=== PATIENT | male | born 1965 | race Caucasian/White ===

== ENCOUNTER 2018-12-11 11:44 | Observation (INO) | payer BC ==
[2018-12-11] MEDS ORDERED: ASPIRIN 81 MG PO STA (12:10)
[2018-12-11] MEDS ORDERED: NITROGLYCERIN OINT 1 INCH/GM PACKET TOPICAL STA (12:10)
[2018-12-11 12:43] LABS: Basophils % (A) 0 %; Eosinophils # (A) 0.1 k/uL (0-0.7); Eosinophils % (A) 1 %; HCT 55.5 % (39.0-53.0); HGB 17.9 gm/dL (13.0-17.5); Lymphocytes # (A) 1.1 k/uL (1.0-4.8); Lymphocytes % (A) 18 %; MCH 33.7 pg (25.0-35.0); MCHC 32.2 g/dL (31.0-37.0); MCV 104.8 fL (80.0-100.0); Macrocytosis Moderate; Mean Platelet Volume 7.8; Monocytes # (A) 0.3 k/uL (0-1.0); Monocytes % (A) 5 %; Neutrophils # (A) 4.4 k/uL (1.3-7.7); Neutrophils % (A) 74 %; Platelet Count 259 k/uL (150-450); RBC 5.29 m/uL (4.30-5.90); RDW 15.7 % (11.5-15.5)
--- NOTE | 2018-12-11 12:50 | ED ---
General Adult HPI - General Chief complaint: Chest Pain Stated complaint: Chest pressure Time Seen by Provider: 12/11/18 11:45 Source: patient, RN notes reviewed Mode of arrival: wheelchair Limitations: no limitations - History of Present Illness Initial comments: This is a 52-year-old male with no significant past medical history except for smoking for which she has quit 7 years ago. Patient states starting on Sunday he had chest pain on the left side of his chest which radiated a little to his left shoulder and also made him slightly lightheaded and had some tingling in his left hand. Patient states the episode lasted about 5 minutes and it is very occurred every day multiple times each day. Patient states the pain is a pressure sensation that he feels. Patient states it usually lasts 5 minutes and occasionally is only lasted a few minutes. Patient currently denies any chest pain. Patient denies any history of diabetes hypertension or high cholesterol. Patient denies any family history of heart disease. Patient denies any recent fever chills or cough. Patient denies any headache patient denies numbness weakness. Patient denies lightheadedness dizziness or near-syncopal episode. Patient denies any swelling to the legs or calf tenderness. - Related Data Home Medications Medication Instructions Recorded Confirmed Aspirin EC [Ecotrin] 325 mg PO DAILY PRN 12/11/18 12/11/18 [place]-3 Fatty Acids/Fish Oil [Fish 1 cap PO DAILY 12/11/18 12/11/18 Oil 1,000 mg Softgel] Tamsulosin [Flomax] 0.4 mg PO DAILY 12/11/18 12/11/18 Allergies Allergy/AdvReac Type Severity Reaction Status Date / Time No Known Allergies Allergy Verified 12/11/18 12:10 Review of Systems ROS Statement: Those systems with pertinent positive or pertinent negative responses have been documented in the HPI. ROS Other: All systems not noted in ROS Statement are negative. Past Medical History Additional Past Medical History / Comment(s): bladder retention History of Any Multi-Drug Resistant Organisms: None Reported Past Surgical History: Hernia Repair Smoking Status: Former smoker Past Alcohol Use History: Occasional Past Drug Use History: Marijuana General Exam - General Exam Comments Initial Comments: GENERAL: Patient is well-developed and well-nourished. Patient is nontoxic and well- hydrated and is in mild distress. ENT: Neck is soft and supple. No significant lymphadenopathy is noted. Oropharynx is clear. Moist mucous membranes. Neck has full range of motion without eliciting any pain. EYES: The sclera were anicteric and conjunctiva were pink and moist. Extraocular movements were intact and pupils were equal round and reactive to light. Eyelids were unremarkable. PULMONARY: Unlabored respirations. Good breath sounds bilaterally. No audible rales rhonchi or wheezing was noted. CARDIOVASCULAR: There is a regular rate and rhythm without any murmurs gallops or rubs. ABDOMEN: Soft and nontender with normal bowel sounds. No palpable organomegaly was noted. There is no palpable pulsatile mass. SKIN: Skin is clear with no lesions or rashes and otherwise unremarkable. NEUROLOGIC: Patient is alert and oriented x3. Cranial nerves II through XII are grossly intact. Motor and sensory are also intact. Normal speech, volume and content. Symmetrical smile. MUSCULOSKELETAL: Normal extremities with adequate strength and full range of motion. LYMPHATICS: No significant lymphadenopathy is noted PSYCHIATRIC: Normal psychiatric evaluation. Limitations: no limitations Course Vital Signs 12/11/18 11:47 Temperature 98.1 F Pulse Rate 96 Respiratory 18 Rate Blood Pressure 158/89 O2 Sat by Pulse 98 Oximetry Medical Decision Making - Medical Decision Making EKG shows normal sinus rhythm at 82 bpm MS interval 170 QRS is 96 Q-T intervals 36 QTC is 450. Patient's EKG shows no ST segment elevation or depression or T wave abnormalities are noted. Chest x-ray showed no acute normalities. New. Patient had no chest pain while in the emergency department. Patient did receive aspirin and Nitropaste and heparin. I spoke with Dr. Cortes he agreed to accept the patient admitted the patient wrote admitting orders I continued heparin and aspirin and Nitropaste on the floor. I also consult to cardiology. - Lab Data Result diagrams: 12/11/18 11:59 12/11/18 11:59 Lab Results 12/11/18 12/11/18 12/11/18 Range/Units 11:59 11:59 11:59 WBC 6.0 (3.8-10.6) k/uL RBC 5.29 (4.30-5.90) m/uL Hgb 17.9 H (13.0-17.5) gm/dL Hct 55.5 H (39.0-53.0) % MCV 104.8 H (80.0-100.0) fL MCH 33.7 (25.0-35.0) pg MCHC 32.2 (31.0-37.0) g/dL RDW 15.7 H (11.5-15.5) % Plt Count 259 (150-450) k/uL Neutrophils % 74 % Lymphocytes % 18 % Monocytes % 5 % Eosinophils % 1 % Basophils % 0 % Neutrophils # 4.4 (1.3-7.7) k/uL Lymphocytes # 1.1 (1.0-4.8) k/uL Monocytes # 0.3 (0-1.0) k/uL Eosinophils # 0.1 (0-0.7) k/uL Basophils # 0.0 (0-0.2) k/uL Macrocytosis Moderate PT 11.5 (9.0-12.0) sec INR 1.1 (<1.2) APTT 24.2 (22.0-30.0) sec Sodium 141 (137-145) mmol/L Potassium 4.2 (3.5-5.1) mmol/L Chloride 104 (98-107) mmol/L Carbon Dioxide 24 (22-30) mmol/L Anion Gap 13 mmol/L BUN 8 L (9-20) mg/dL Creatinine 0.77 (0.66-1.25) mg/dL Est GFR (CKD-EPI)AfAm >90 (>60 ml/min/1.73 sqM) Est GFR (CKD-EPI)NonAf >90 (>60 ml/min/1.73 sqM) Glucose 103 H (74-99) mg/dL Calcium 10.1 (8.4-10.2) mg/dL Magnesium 1.9 (1.6-2.3) mg/dL Total Bilirubin 0.8 (0.2-1.3) mg/dL AST 24 (17-59) U/L ALT 23 (21-72) U/L Alkaline Phosphatase 73 (38-126) U/L Troponin I (0.000-0.034) ng/mL Total Protein 8.4 H (6.3-8.2) g/dL Albumin 5.2 H (3.5-5.0) g/dL 12/11/18 Range/Units 11:59 WBC (3.8-10.6) k/uL RBC (4.30-5.90) m/uL Hgb (13.0-17.5) gm/dL Hct (39.0-53.0) % MCV (80.0-100.0) fL MCH (25.0-35.0) pg MCHC (31.0-37.0) g/dL RDW (11.5-15.5) % Plt Count (150-450) k/uL Neutrophils % % Lymphocytes % % Monocytes % % Eosinophils % % Basophils % % Neutrophils # (1.3-7.7) k/uL Lymphocytes # (1.0-4.8) k/uL Monocytes # (0-1.0) k/uL Eosinophils # (0-0.7) k/uL Basophils # (0-0.2) k/uL Macrocytosis PT (9.0-12.0) sec INR (<1.2) APTT (22.0-30.0) sec Sodium (137-145) mmol/L Potassium (3.5-5.1) mmol/L Chloride (98-107) mmol/L Carbon Dioxide (22-30) mmol/L Anion Gap mmol/L BUN (9-20) mg/dL Creatinine (0.66-1.25) mg/dL Est GFR (CKD-EPI)AfAm (>60 ml/min/1.73 sqM) Est GFR (CKD-EPI)NonAf (>60 ml/min/1.73 sqM) Glucose (74-99) mg/dL Calcium (8.4-10.2) mg/dL Magnesium (1.6-2.3) mg/dL Total Bilirubin (0.2-1.3) mg/dL AST (17-59) U/L ALT (21-72) U/L Alkaline Phosphatase (38-126) U/L Troponin I <0.012 (0.000-0.034) ng/mL Total Protein (6.3-8.2) g/dL Albumin (3.5-5.0) g/dL Critical Care Time Critical Care Time: Yes Total Critical Care Time: 35 Disposition Clinical Impression: Unstable angina pectoris Disposition: ADMITTED IP TO THIS [facility] Referrals: Tad Forrest MD [Primary Care Provider] - 1-2 days Time of Disposition: 13:29
[2018-12-11 12:51] LABS: INR 1.1 (<1.2); Partial Thromboplastin Time 24.2 sec (22.0-30.0); Prothrombin Time 11.5 sec (9.0-12.0)
--- NOTE | 2018-12-11 12:54 | XR ---
EXAMINATION TYPE: XR chest 2V DATE OF EXAM: 12/11/2018 COMPARISON: NONE HISTORY: Chest pain and shortness of breath TECHNIQUE: Frontal and lateral views of the chest are obtained. FINDINGS: There is no focal air space opacity, pleural effusion, or pneumothorax seen. The cardiac silhouette size is within normal limits. The osseous structures are intact. There are overlying car diac leads. IMPRESSION: No acute cardiopulmonary process.
[2018-12-11 12:55] LABS: ALT 23 U/L (21-72); AST 24 U/L (17-59); African American GFR (CKD) >90 (>60 ml/min/1.73 sqM); Albumin 5.2 g/dL (3.5-5.0); Alkaline Phosphatase 73 U/L (38-126); Anion Gap 13 mmol/L; Blood Urea Nitrogen 8 mg/dL (9-20); Calcium 10.1 mg/dL (8.4-10.2); Carbon Dioxide 24 mmol/L (22-30); Chloride 104 mmol/L (98-107); Glucose 103 mg/dL (74-99); Magnesium 1.9 mg/dL (1.6-2.3); Potassium 4.2 mmol/L (3.5-5.1); Sodium 141 mmol/L (137-145); Total Bilirubin 0.8 mg/dL (0.2-1.3); Total Protein 8.4 g/dL (6.3-8.2)
[2018-12-11] MEDS ORDERED: HEPARIN SODIUM,PORCINE 5,000 UNIT/ML 1 ML VIAL IV ONE (13:26)
[2018-12-11] MEDS ORDERED: NITROGLYCERIN SL TABS 0.4 MG TAB SUBLINGUAL PRN (13:30)
[2018-12-11] MEDS ORDERED: HEPARIN SOD,PORK IN 0.45% NACL 25,000 UNIT in 0.45% NACL 1 250ML.BAG IV SCH (13:45)
--- NOTE | 2018-12-11 14:47 | P.HPIM ---
History of Present Illness H&P Date: 12/11/18 Chief Complaint: Chest pain This is a 52-year-old male one of Dr. Forrest with a previous medical history significant for hypertension and hypertensive cardiovascular disease, hyperlipidemia, tinnitus, colon polyps, patient presented to the emergency department at [facility] with 3 day history of recurrent left-sided chest pain associated with increased shortness breath patient stated that he was at a family reunion on Sunday was hot and suddenly developed to have a significant chest pressure associated with increased shortness breath with profuse sweating ended up going to a "spot and he felt better Sunday was doing fine on and off left-sided chest pain has no relation to exertion at that time Sunday felt better however he woke up on Sunday with more chest pain he spend lasted for less than a minute and has no relation to exertion he stated that he has been exercising on treadmill and lifting lightweights without evidence of any chest pain located in the morning from sleep with left-sided chest pain and shortness breath he ended up driving himself to the emergency department for evaluation 12-lead EKG did not show any evidence of acute abnormalities, cardiac enzymes were negative he was admitted to the hospital for evaluation he has not had any cardiac evaluation in the past he would be scheduled for stress echo in the morning. Review of Systems Constitutional: Denies anorexia, Denies chronic headaches, Denies fever, Denies lethargy, Denies weakness Eyes: denies as per HPI, denies blurred vision, denies bulging eye Ears: deny: decreased hearing Ears, nose, mouth and throat: Denies dysphagia, Denies neck lump, Denies sore throat Cardiovascular: Reports chest pain, Reports shortness of breath, Denies decreased exercise tolerance, Denies dyspnea on exertion, Denies leg edema, Denies lightheadedness, Denies orthopnea, Denies palpitations, Denies rapid heart beat, Denies syncope Respiratory: Denies congestion, Denies cough, Denies cough with sputum, Denies home oxygen, Denies sleep apnea, Denies snoring, Denies wheezing Gastrointestinal: Denies abdominal pain, Denies belching, Denies bloating, Denies change in bowel habits, Denies heartburn, Denies melena, Denies nausea, Denies vomiting Genitourinary: Denies dysuria, Denies nocturia Musculoskeletal: Denies myalgias Musculoskeletal: absent: ankle pain, ankle stiffness, ankle swelling, elbow pain, elbow stiffness, elbow swelling, foot pain, foot stiffness, foot swelling, hand pain, hand stiffness, hand swelling, hip pain, hip stiffness, hip swelling, knee pain, knee stiffness, knee swelling, shoulder pain, shoulder stiffness, shoulder swelling, wrist pain, wrist stiffness, wrist swelling Integumentary: Denies pruritus, Denies rash Neurological: Denies numbness, Denies weakness Psychiatric: Denies anxiety, Denies depression Endocrine: Denies fatigue, Denies weight change Past Medical History Past Medical History: Hyperlipidemia, Hypertension Additional Past Medical History / Comment(s): bladder retention, tinnitus, colon polyps. History of Any Multi-Drug Resistant Organisms: None Reported Past Surgical History: Hernia Repair Additional Past Surgical History / Comment(s): Colonoscopy last year with polypectomy. Smoking Status: Former smoker (Patient used to smoke about pack every day smoked for about 13 years quit 7 years ago.) Past Alcohol Use History: Occasional Past Drug Use History: Marijuana - Past Family History Mother Family Medical History: Cancer (Mother is 79-year-old with a history of bladder cancer and COPD.), COPD Father Family Medical History: Cancer (Father at age of 55 from lung cancer with metastases and he had asbestos exposure) Sister(s) Family Medical History: No Reported History (Patient has one sister no major medical problems.) Medications and Allergies Home Medications Medication Instructions Recorded Confirmed Type Aspirin EC [Ecotrin] 325 mg PO DAILY PRN 12/11/18 12/11/18 History [place]-3 Fatty Acids/Fish Oil [Fish 1 cap PO DAILY 12/11/18 12/11/18 History Oil 1,000 mg Softgel] Tamsulosin [Flomax] 0.4 mg PO DAILY 12/11/18 12/11/18 History Allergies Allergy/AdvReac Type Severity Reaction Status Date / Time No Known Allergies Allergy Verified 12/11/18 12:10 Physical Exam Vitals: Vital Signs Temp Pulse Resp BP Pulse Ox 12/11/18 11:47 98.1 F 96 18 158/89 98 Intake and Output 12/10/18 12/11/18 12/11/18 22:59 06:59 14:59 Other: Weight 84.822 kg - Constitutional General appearance: average body habitus, no acute distress - EENT Eyes: anicteric sclerae, EOMI, PERRLA, no ptosis, no scleral icterus, normal appearance ENT: hearing grossly normal, NA/AT, normal oropharynx, no thrush Ears: bilateral: normal - Neck Neck: no lymphadenopathy, normal ROM, no rigidity, no stridor, no thyromegaly Carotids: bilateral: upstroke normal Thyroid: bilateral: normal size - Respiratory Respiratory: bilateral: diminished, negative: dullness, rales, rhonchi, wheezing, prolonged expiration, prolonged inspiration - Cardiovascular Rhythm: regular Heart sounds: normal: S1, S2 Abnormal Heart Sounds: no systolic murmur, no S3 Gallop, no S4 Gallop - Gastrointestinal General gastrointestinal: normal bowel sounds, soft, no splenomegaly, no tend erness, no umbilical hernia, no ventral hernia - Integumentary Integumentary: normal, normal turgor - Neurologic Neurologic: CNII-XII intact - Musculoskeletal Musculoskeletal: gait normal, strength equal bilaterally - Psychiatric Psychiatric: A&O x's 3, appropriate affect, intact judgment & insight Results CBC & Chem 7: 12/11/18 11:59 12/11/18 11:59 Labs: Abnormal Lab Results - Last 24 Hours (Table) 12/11/18 12/11/18 Range/Units 11:59 11:59 Hgb 17.9 H (13.0-17.5) gm/dL Hct 55.5 H (39.0-53.0) % MCV 104.8 H (80.0-100.0) fL RDW 15.7 H (11.5-15.5) % BUN 8 L (9-20) mg/dL Glucose 103 H (74-99) mg/dL Total Protein 8.4 H (6.3-8.2) g/dL Albumin 5.2 H (3.5-5.0) g/dL Thrombosis Risk Factor Assmnt - DVT/VTE Prophylaxis DVT/VTE Prophylaxis: Pharmacologic Prophylaxis ordered, Mechanical Prophylaxis ordered Assessment and Plan Assessment: Assessment and plan: 1. Chest pain likely noncardiac. Patient has a few risk factor for heart disease, patient will be kept in observation, cardiac enzymes 3 every 8 hours, patient will be scheduled for stress echo tomorrow morning for further evaluation, if the stress test is negative can be discharged home and follow-up as an outpatient. 2. Hypertension. Patient is not taking any medication at this time we'll consider starting the patient on small dose of lisinopril 5 mg orally once every day. 3. Hyperlipidemia. Check lipid panel start the patient on Lipitor to keep his LDL less than 100 at all the time. 4. History of tinnitus. Stable. 5. History of colon polyps. Colonoscopy is up-to-date scheduled for another one in 3 years. 6. DVT prophylaxis. On heparin. 7. GI prophylaxis. Pepcid 20 mg orally once every day. 8. Observation. 9. Full code.
[2018-12-11] MEDS: NITROGLYCERIN OINT 1 INCH/GM PACKET TOPICAL SCH (19:00)
[2018-12-12] MEDS: NITROGLYCERIN OINT 1 INCH/GM PACKET TOPICAL SCH ×2 (00:22→04:51)
[2018-12-12 07:50] LABS: Cholesterol 164 mg/dL (<200); HDL Cholesterol 42 mg/dL (40-60); LDL Cholesterol,Calculated 84 mg/dL (0-99); Triglycerides 189 mg/dL (<150)
[2018-12-12] MEDS ORDERED: ASPIRIN 325 MG TAB PO SCH (09:00)
[2018-12-12] MEDS ORDERED: FAMOTIDINE 20 MG TAB PO SCH (09:00)
[2018-12-12] MEDS ORDERED: LISINOPRIL 5 MG TAB PO SCH (09:00)
--- NOTE | 2018-12-12 12:04 | P.CRDCN ---
History of Present Illness History of present illness: This is a pleasant 52-year-old male past medical history significant for intermittent hypertension and is probably not on medical therapy. He denies history of coronary artery disease and does not follow with a application design engineer for any reason. We have been asked him in consultation secondary to chest discomfort. He states while at a family reunion on Sunday he was sitting outside in the heat and started feeling a tight pinching sensation in the left precordial region. He went into the house in the AC and the pain subsided. This happened again Sunday, Sunday, Sunday and Sunday. All 4 days he woke up in the morning feeling normal state of health with no chest discomfort has progressed he developed similar type burning pinching type of left precordial chest discomfort. There was no radiation to the arm, back, neck or jaw. This was associated with very mild shortness of breath and feeling somewhat lightheaded. He denies palpitations, nausea, vomiting or diaphoresis. He is seen and examined resting comfortably in no acute distress. He is currently chest pain-free. EKG reveals sinus mechanism with no acute ST or T wave abnormalities noted. Chest x-ray is negative for an acute cardiopulmonary process. Laboratory data reviewed, cardiac enzymes negative 3, WBC 6, hemoglobin 17.9, platelets 259, sodium 141, potassium 4.2, creatinine 0.77. He takes no daily cardiac medications. At the time of my exam: CONSTITUTIONAL: Denies fever. Denies chills. EYES: Denies blurred vision. Denies vision changes. Denies eye pain. EARS, NOSE, MOUTH & THROAT: Denies headache. Denies sore throat. Denies ear pain. CARDIOVASCULAR: Denies chest pain. Denies shortness of breath. Denies orthopnea. Denies PND. Denies palpitations. RESPIRATORY: Denies cough. GASTROINTESTINAL: Denies abdominal pain. Denies diarrhea. Denies constipation. Denies nausea. Denies vomiting. MUSCULOSKELETAL: Denies myalgias. INTEGUMENTARY: Denies pruitis. Denies rash. NEUROLOGIC: Denies numbness. Denies tingling. Denies weakness. PSYCHIATRIC: Denies anxiety. Denies depression. ENDOCRINE: Denies fatigue. Denies weight change. Denies polydipsia. Denies polyurina. GENITOURINARY: Denies burning, hematuria or urgency with micturation. HEMATOLOGIC: Denies history of anemia. Denies bleeding. Blood pressure GENERAL: This is a 52-year-old male in no apparent distress at the time of my examination. HEENT: Head is atraumatic, normocephalic. Pupils are equal, round. Sclerae anict lizbet. Conjunctivae are clear. Mucous membranes of the mouth are moist. Neck is supple. There is no jugular venous distention. No carotid bruit is heard. LUNGS: Clear to auscultation no wheezes, rales or rhonchi. No chest wall tenderness is noted on palpation or with deep breathing. HEART: Regular rate and rhythm without murmurs, rubs or gallops. S1 and S2 heard. ABDOMEN: Soft, nontender. Bowel sounds are heard. No organomegaly noted. EXTREMITIES: No evidence of peripheral edema and no calf tenderness noted. VASCULAR: Radial and dorsalis pedis pulses palpated, no evidence of clubbing. NEUROLOGIC: Patient is awake, alert and oriented x3. ASSESSMENT Chest pain, atypical. An acute coronary event has been ruled out PLAN Symptoms are atypical and not indicative of angina. Noncardiac etiology to be evaluated by the primary care team. An acute coronary event has been ruled out. Discontinue heparin infusion. Obtain 2-D echocardiogram and Doppler study to assess cardiac structure and fu nction. Perform stress echocardiogram to assess for stress-induced ischemia. If stress test is normal the patient is stable from a cardiac perspective. Thank you kindly for this consultation. Nurse Practitioner note has been reviewed, I agree with a documented findings and plan of care. Patient was seen and examined. Past Medical History Past Medical History: Hyperlipidemia, Hypertension Additional Past Medical History / Comment(s): bladder retention, tinnitus, colon polyps. History of Any Multi-Drug Resistant Organisms: None Reported Past Surgical History: Hernia Repair Additional Past Surgical History / Comment(s): Colonoscopy last year with polyp ectomy. Past Anesthesia/Blood Transfusion Reactions: No Reported Reaction Past Psychological History: No Psychological Hx Reported Smoking Status: Former smoker Past Alcohol Use History: Occasional Past Drug Use History: Marijuana - Past Family History Mother Family Medical History: Cancer, COPD Father Family Medical History: Cancer Sister(s) Family Medical History: No Reported History Medications and Allergies Home Medications Medication Instructions Recorded Confirmed Type Aspirin EC [Ecotrin] 325 mg PO DAILY PRN 12/11/18 12/11/18 History [place]-3 Fatty Acids/Fish Oil [Fish 1 cap PO DAILY 12/11/18 12/11/18 History Oil 1,000 mg Softgel] Tamsulosin [Flomax] 0.4 mg PO DAILY 12/11/18 12/11/18 History Allergies Allergy/AdvReac Type Severity Reaction Status Date / Time No Known Allergies Allergy Verified 12/11/18 12:10 Physical Exam Vitals: Vital Signs Temp Pulse Pulse Resp BP BP Pulse Ox 12/12/18 07:43 97.9 F 55 L 18 115/76 97 12/12/18 03:57 98.3 F 64 16 102/64 97 12/12/18 00:00 98.5 F 60 18 121/59 93 L 12/11/18 19:33 98.1 F 80 18 123/72 95 12/11/18 16:00 84 19 12/11/18 15:10 97.8 F 84 19 129/89 95 12/11/18 11:47 98.1 F 96 18 158/89 98 Intake and Output 12/11/18 12/12/18 12/12/18 22:59 06:59 14:59 Intake Total 83.508 Balance 83.508 Intake: Intake, IV Titration 83.508 Amount Heparin Sod,Pork in 0.45% 83.508 NaCl 25,000 unit In 0.45 % NaCl 1 250ml.bag @ 11. 79 UNITS/KG/HR 10.001 mls /hr IV .Q24H FOR[facility]LY [facility], 1928–1983 Rx#: [id number] Other: Voiding Method Toilet Toilet # Voids 2 1 Results 12/11/18 11:59 12/11/18 11:59 Cardiac Enzymes 12/11/18 12/11/18 12/11/18 Range/Units 11:59 11:59 19:59 AST 24 (17-59) U/L Troponin I <0.012 <0.012 (0.000-0.034) ng/mL 12/11/18 Range/Units 23:57 AST (17-59) U/L Troponin I <0.012 (0.000-0.034) ng/mL Coagulation 12/11/18 12/11/18 12/12/18 Range/Units 11:59 19:59 06:53 PT 11.5 (9.0-12.0) sec APTT 24.2 35.7 H 46.2 H (22.0-30.0) sec Lipids 12/12/18 Range/Units 06:53 Triglycerides 189 H (<150) mg/dL Cholesterol 164 (<200) mg/dL HDL Cholesterol 42 (40-60) mg/dL CBC 12/11/18 Range/Units 11:59 WBC 6.0 (3.8-10.6) k/uL RBC 5.29 (4.30-5.90) m/uL Hgb 17.9 H (13.0-17.5) gm/dL Hct 55.5 H (39.0-53.0) % Plt Count 259 (150-450) k/uL Comprehensive Metabolic Panel 12/11/18 Range/Units 11:59 Sodium 141 (137-145) mmol/L Potassium 4.2 (3.5-5.1) mmol/L Chloride 104 (98-107) mmol/L Carbon Dioxide 24 (22-30) mmol/L BUN 8 L (9-20) mg/dL Creatinine 0.77 (0.66-1.25) mg/dL Glucose 103 H (74-99) mg/dL Calcium 10.1 (8.4-10.2) mg/dL AST 24 (17-59) U/L ALT 23 (21-72) U/L Alkaline Phosphatase 73 (38-126) U/L Total Protein 8.4 H (6.3-8.2) g/dL Albumin 5.2 H (3.5-5.0) g/dL Current Medications Generic Name Dose Route Start Last Admin Trade Name Freq PRN Reason Stop Dose Admin Aspirin 325 mg 12/12/18 09:00 Aspirin PO DAILY [facility]1983 Famotidine 20 mg 12/12/18 09:00 Pepcid PO DAILY [facility]IS Lisinopril 5 mg 12/12/18 09:00 Zestril PO DAILY [facility]1983 Nitroglycerin 0.4 mg 12/11/18 13:30 Nitrostat SUBLINGUAL Q5M PRN Chest Pain Intake and Output 12/11/18 12/12/18 12/12/18 22:59 06:59 14:59 Intake Total 83.508 Balance 83.508 Intake: Intake, IV Titration 83.508 Amount Heparin Sod,Pork in 0.45% 83.508 NaCl 25,000 unit In 0.45 % NaCl 1 250ml.bag @ 11. 79 UNITS/KG/HR 10.001 mls /hr IV .Q24H [facility], [facility]–1983 Rx#: [id number] Other: Voiding Method Toilet Toilet # Voids 2 1 12/11/18 11:59 12/11/18 11:59
--- NOTE | 2018-12-12 12:06 | ECHOF ---
Referral Reason:cp MEASUREMENTS -------- HEIGHT: 182.9 cm WEIGHT: 84.8 kg BP: 115/76 RVIDd: 3.3 cm (< 3.3) IVSd: 1.2 cm (0.6 - 1.1) LVIDd: 4.8 cm (3.9 - 5.3) LVPWd: 1.2 cm (0.6 - 1.1) IVSs: 1.7 cm LVIDs: 2.2 cm LVPWs: 1.5 cm LA Diam: 3.0 cm (2.7 - 3.8) LAESV Index (A-L): 20.75 ml/m Ao Diam: 4.0 cm (2.0 - 3.7) AV Cusp: 2.3 cm (1.5 - 2.6) EPSS: 0.5 cm MV E Raimundo: 0.84 m/s MV DecT: 249 ms MV A Raimundo: 0.69 m/s MV E/A Ratio: 1.23 MV EF SLOPE: 91.60 mm/s (70 - 150) MV EXCURSION: 1.38 cm (> 18.000) FINDINGS -------- Sinus rhythm. This was a technically good study. The left ventricular size is normal. There is borderline concentric left ventricular hypertrophy. Overall left ventricular systolic function is normal with, an EF between 60 - 65 %. The right ventricle is normal in size. Left atrium is normal size by volume. The right atrium is normal in size and function. Interatrial and interventricular septum intact. Aortic valve is trileaflet and is mildly thickened. There is trace to mild mitral regurgitation. The tricuspid valve appears structurally normal. The pulmonic valve was not well visualized. The aortic root is dilated measuring 4.0cm. The inferior vena cava was not well visualized. There is no pericardial effusion. CONCLUSIONS -------- 1. Sinus rhythm. 2. This was a technically good study. 3. The left ventricular size is normal. 4. There is borderline concentric left ventricular hypertrophy. 5. Overall left ventricular systolic function is normal with, an EF between 60 - 65 %. 6. The right ventricle is normal in size. 7. Left atrium is normal size by volume. 8. The right atrium is normal in size and function. 9. Interatrial and interventricular septum intact. 10. Aortic valve is trileaflet and is mildly thickened. 11. There is trace to mild mitral regurgitation. 12. The tricuspid valve appears structurally normal. 13. The pulmonic valve was not well visualized. 14. The aortic root is dilated measuring 4.0cm. 15. The inferior vena cava was not well visualized. 16. There is no pericardial effusion. IRONER MACHINE: JUAN Wong
[2018-12-12 12:14] VITALS: BP 136/79; PULSE 69; RESP 16; TEMP 98.3
--- NOTE | 2018-12-12 12:16 | ECHOS ---
STRESS ECHOCARDIOGRAM INDICATIONS: Chest pain. BASELINE HEART RATE: 88 BASELINE BLOOD PRESSURE: 157/87 MAXIMUM HEART RATE: 154 MAXIMUM BLOOD PRESSURE: 178/95. 85% MPHR: 142 100% MPHR: 167 METS: 12.1 MAXIMUM STAGE REACHED: III TOTAL EXERCISE TIME: 10:54 CLINICAL INFORMATION: Baseline EKG revealed normal sinus rhythm without significant ST-T changes. Patient walked for 10 minutes 54 seconds, achieved a maximal heart rate of 154 beats per minute which is well above 85% of predicted maximal. She developed some fatigue and shortness of breath but did not have any angina or any arrhythmia. By EKG criteria, this is a negative stress test with excellent exercise capacity. Baseline echo images revealed normal wall motion wall thickening of all segments. At peak exercise, there was good augmentation of left ventricular wall motion and wall thickening of all segments suggesting that there is no stress-induced ischemia on this study. FINAL IMPRESSION: 1. Excellent exercise capacity with a negative stress test by EKG criteria. 2. Normal stress echocardiogram. MMODL / IJN: [id number] /
--- NOTE | 2018-12-13 09:44 | P.DS ---
Providers Date of admission: 12/11/18 13:30 Expected date of discharge: 12/12/18 Attending physician: Vane Cortes Consults: 12/11/18 13:30 Consult Physician Urgent Consulting Provider: [facility] Consult Reason/Comments: Unstable angina Do you want consulting provider notified?: Yes Primary care physician: Tad Forrest [facility] Course: This is a 52-year-old male one of Dr. Forrest with a previous medical history significant for hypertension and hypertensive cardiovascular disease, hyperlipidemia, tinnitus, colon polyps, patient presented to the emergency department at [facility] with 3 day history of recurrent left-sided chest pain associated with increased shortness breath patient stated that he was at a family reunion on Sunday was hot and suddenly developed to have a significant chest pressure associated with increased shortness breath with profuse sweating ended up going to a "spot and he felt better Sunday was doing fine on and off left-sided chest pain has no relation to exertion at that time Sunday felt better however he woke up on Sunday with more chest pain he spend lasted for less than a minute and has no relation to exertion he stated that he has been exercising on treadmill and lifting lightweights without evidence of any chest pain located in the morning from sleep with left-sided chest pain and shortness breath he ended up driving himself to the emergency department for evaluation 12-lead EKG did not show any evidence of acute abnormalities, cardiac enzymes were negative he was admitted to the hospital for evaluation he has not had any cardiac evaluation in the past he would be scheduled for stress echo in the morning. 12/12: Troponins have been negative on 3 draws. Triglycerides 189, cholesterol 164, LDL 84, HDL 42. Patient has been seen by cardiology and stress echo was negative and patient cleared for discharge. Echocardiogram reveals EF 60-65%, borderline concentric left hypertrophy, mild mitral regurgitation, aortic root is dilated at 4.0 cm. Patient will be discharged home today in stable condition. Discharge diagnoses: 1. Chest pain likely noncardiac. 2. Hypertension. 3. Hyperlipidemia. 4. History of tinnitus. Stable. 5. History of colon polyps. Discharge plan: Home Impression and plan of care have been directed as dictated by the signing phys kyara. Daylin Vaughn nurse practitioner acting as scribe for signing physician. Patient Condition at Discharge: Good Plan - Discharge Summary Discharge Rx Participant: No New Discharge Prescriptions: New Lisinopril [Zestril] 5 mg PO DAILY #30 tab Continue Tamsulosin [Flomax] 0.4 mg PO DAILY Aspirin EC [Ecotrin] 325 mg PO DAILY PRN PRN Reason: Pain [place]-3 Fatty Acids/Fish Oil [Fish Oil 1,000 mg Softgel] 1 cap PO DAILY Discharge Medication List Aspirin EC [Ecotrin] 325 mg PO DAILY PRN 12/11/18 [History] [place]-3 Fatty Acids/Fish Oil [Fish Oil 1,000 mg Softgel] 1 cap PO DAILY 12/11/18 [History] Tamsulosin [Flomax] 0.4 mg PO DAILY 12/11/18 [History] Lisinopril [Zestril] 5 mg PO DAILY #30 tab 12/12/18 [Rx] Follow up Appointment(s)/Referral(s): Tad Forrest MD [Primary Care Provider] - 1 Week
== END 2018-12-12 14:54 ==
LOC: EC 11:44 → 1SOBS 13:30
PROVIDERS: ADMIT Internal Medicine; ATTEND Internal Medicine
DX: R07.89 Other chest pain (principal); R42 Dizziness and giddiness; R20.2 Paresthesia of skin; R06.00 Dyspnea, unspecified; R61 Generalized hyperhidrosis; I11.9 Hypertensive heart disease without heart failure; E78.5 Hyperlipidemia, unspecified; H93.19 Tinnitus, unspecified ear; R33.9 Retention of urine, unspecified; Z86.010 Personal history of colon polyps; Z87.891 Personal history of nicotine dependence; Z79.82 Long term (current) use of aspirin; Z79.899 Other long term (current) drug therapy; Z82.5 Family history of asthma and other chronic lower respiratory diseases; Z80.1 Family history of malignant neoplasm of trachea, bronchus and lung; Z80.8 Family history of malignant neoplasm of other organs or systems
CPT/HCPCS: 96366 ×2; 96376; 96365; 99291; 36415; 93005; 93306; 93351; 80061; 80053; 83735; 84484; 85025; 85610; 85730 ×2; 71046; G0378 ×2; J1644 ×2

== ENCOUNTER 2022-06-11 09:43 | Observation (INO) | payer BC ==
[2022-06-11] MEDS ORDERED: ASPIRIN 81 MG PO STA (10:07)
[2022-06-11 10:27] LABS: Basophils % (A) 1 %; Eosinophils # (A) 0.1 k/uL (0-0.7); Eosinophils % (A) 1 %; HCT 41.2 % (39.0-53.0); Lymphocytes # (A) 1.5 k/uL (1.0-4.8); Lymphocytes % (A) 26 %; MCH 32.4 pg (25.0-35.0); MCHC 34.1 g/dL (31.0-37.0); MCV 95.1 fL (80.0-100.0); Mean Platelet Volume 8.2; Monocytes # (A) 0.4 k/uL (0-1.0); Monocytes % (A) 6 %; Neutrophils # (A) 3.9 k/uL (1.3-7.7); Neutrophils % (A) 65 %; Platelet Count 360 k/uL (150-450); RBC 4.33 m/uL (4.30-5.90); RDW 11.4 % (11.5-15.5)
[2022-06-11 10:43] LABS: INR 1.1 (<1.2); Prothrombin Time 11.1 sec (9.0-12.0)
--- NOTE | 2022-06-11 10:57 | ED ---
Chest Pain HPI - General Chief Complaint: Chest Pain Stated Complaint: Chest Pain Time Seen by Provider: 06/11/22 10:01 Source: patient, RN notes reviewed Mode of arrival: ambulatory Limitations: no limitations - History of Present Illness Initial Comments: 56-year-old male presents emergency Department with chief complaint of intermittent chest pain. He states that has been present for last 10 days but states that it is more frequent and more pronounced now. He states that he's had some issues in the past in which she's had stress tests but no changes. Patient states that he does have history of hyperlipidemia and hypertension patient states this is centralized chest pain and does feel short of breath with it. Patient denies any leg pain or leg swelling no abdominal pain denies any lung disease. - Related Data Home Medications Medication Instructions Recorded Confirmed Aspirin EC [Ecotrin] 325 mg PO DAILY PRN 12/11/18 12/11/18 [place]-3 Fatty Acids/Fish Oil [Fish 1 cap PO DAILY 12/11/18 12/11/18 Oil 1,000 mg Softgel] Tamsulosin [Flomax] 0.4 mg PO DAILY 12/11/18 12/11/18 Previous Rx's Medication Instructions Recorded lisinopriL [Zestril] 5 mg PO DAILY #30 tab 12/12/18 Allergies Allergy/AdvReac Type Severity Reaction Status Date / Time No Known Allergies Allergy Verified 06/11/22 09:58 Review of Systems ROS Statement: Those systems with pertinent positive or pertinent negative responses have been documented in the HPI. ROS Other: All systems not noted in ROS Statement are negative. EKG Findings - EKG Comments: EKG Findings:: EKG performed at 10:05 sinus rhythm rate of 82 NE 187 QRS 94 QT/QTC 343/381 - EKG Results: EKG: interpreted by JUNITO Past Medical History Past Medical History: Hyperlipidemia, Hypertension Additional Past Medical History / Comment(s): bladder retention, tinnitus, colon polyps. History of Any Multi-Drug Resistant Organisms: None Reported Past Surgical History: Hernia Repair Additional Past Surgical History / Comment(s): Colonoscopy last year with polypectomy. Past Anesthesia/Blood Transfusion Reactions: No Reported Reaction Past Psychological History: No Psychological Hx Reported Smoking Status: Never smoker Past Alcohol Use History: Occasional Past Drug Use History: Marijuana - Past Family History Mother Family Medical History: Cancer, COPD Father Family Medical History: Cancer Sister(s) Family Medical History: No Reported History General Exam Limitations: no limitations General appearance: alert, in no apparent distress Head exam: Present: atraumatic, normocephalic, normal inspection Eye exam: Present: normal appearance, PERRL, EOMI. Absent: scleral icterus, conjunctival injection, periorbital swelling ENT exam: Present: normal exam, normal oropharynx, mucous membranes moist Neck exam: Present: normal inspection, full ROM. Absent: tenderness, meningismus, lymphadenopathy Respiratory exam: Present: normal lung sounds bilaterally. Absent: respiratory distress, wheezes, rales, rhonchi, stridor Cardiovascular Exam: Present: regular rate, normal rhythm, normal heart sounds. Absent: systolic murmur, diastolic murmur, rubs, gallop, clicks GI/Abdominal exam: Present: soft, normal bowel sounds. Absent: distended, tenderness, guarding, rebound, rigid Neurological exam: Present: alert Course Vital Signs 06/11/22 06/11/22 06/11/22 09:57 10:23 11:00 Temperature 98 F Pulse Rate 90 107 H Pulse Rate [ 88 [employer] ] Respiratory 18 18 Rate Blood Pressure 156/95 120/78 O2 Sat by Pulse 99 99 Oximetry Chest Pain MDM - MDM Was pt. sent in by a medical professional or institution (, PA, POSTAL MAIL CARRIER, urgent care, hospital, or usp...) When possible be specific @ -No Did you speak to anyone other than the patient for history (EMS, parent, family, police, friend...)? What history was obtained from this source @ -No Did you review nursing and triage notes (agree or disagree)? Why? @ -I reviewed and agree with nursing and triage notes Were old charts reviewed (outside hosp., previous admission, EMS record, old EKG, old radiological studies, urgent care reports/EKG's, usp records)? Report findings @ -No old charts were reviewed Differential Diagnosis (chest pain, altered mental status, abdominal pain women, abdominal pain men, vaginal bleeding, weakness, fever, dyspnea, syncope, headache, dizziness, GI bleed, back pain, seizure, CVA, palpatations, mental health)? @ -[Differential Chest Pain: Stable Angina, Unstable Angina, STEMI, NSTEMI Aortic Dissection, Pneumothorax, Musculoskeletal, Esophageal Spasm GERD, Cholecystitis, Pancreatitis, Zoster, this is not meant to be an all-inclusive list. EKG interpreted by me (3pts min.). @ -As above X-rays interpreted by me (1pt min.). @ -Chest x-rays unremarkable CT interpreted by me (1pt min.). @ -None done U/S interpreted by me (1pt. min.). @ -None done What testing was considered but not performed or refused? (CT, X-rays, U/S, labs)? Why? @ -None What meds were considered but not given or refused? Why? @ -None Did you discuss the management of the patient with other professionals (professionals i.e. Dr., PA, POSTAL MAIL CARRIER, lab, RT, psych nurse, clinical social worker, template checker, teacher, commanding officer traffic division, window caser)? Give summary @ -No Was smoking cessation discussed for >3mins.? @ -No Was critical care preformed (if so, how long)? @ -No Were there social determinants of health that impacted care today? How? (Homelessness, low income, unemployed, alcoholism, drug addiction, transportation, low edu. Level, literacy, decrease access to med. care, [place] [facility], rehab)? @ -No Was there de-escalation of care discussed even if they declined (Discuss DNR or withdrawal of care, Hospice)? DNR status @ -No What co-morbidities impacted this encounter? (DM, HTN, Smoking, COPD, CAD, Cancer, CVA, ARF, Chemo, Hep., AIDS, mental health diagnosis, sleep apnea, morbid obesity)? @ -Hypertension, hyperlipidemia Was patient admitted / discharged? Hospital course, mention meds given and route, prescriptions, significant lab abnormalities, going to OR and other pertinent info. @ -Admitted patient's had progressive worsening chest pain symptoms are concerning for underlying ACS. Patient will be admitted for rule out. Undiagnosed new problem with uncertain prognosis? @ -No Drug Therapy requiring intensive monitoring for toxicity (Heparin, Nitro, Insulin, Cardizem)? @ -No Were any procedures done? @ -No Diagnosis/symptom? @ -[Chest pain Acute, or Chronic, or Acute on Chronic? @ -Acute Uncomplicated (without systemic symptoms) or Complicated (systemic symptoms)? @ -Uncomplicated Side effects of treatment? @ -No Exacerbation, Progression, or Severe Exacerbation? @ -No Poses a threat to life or bodily function? How? (Chest pain, [place], NH, pneumonia, PE, COPD, DKA, ARF, appy, cholecystitis, CVA, Diverticulitis, Homicidal, Suicidal, threat to staff... and all critical care pts) @ -yes has chest pain could lead to cardiac arrest Disposition Clinical Impression: Chest pain Disposition: ADMITTED IP TO THIS HOSP Referrals: Tad Forrest MD [Primary Care Provider] - 1-2 days Time of Disposition: 12:01
--- NOTE | 2022-06-11 10:58 | XR ---
EXAMINATION TYPE: XR chest 2V DATE OF EXAM: 06/11/2022 COMPARISON: 12/11/2018 HISTORY: Intermittent chest pain TECHNIQUE: Frontal and lateral views of the chest are obtained. FINDINGS: There is no focal air space opacity, pleural effusion, or pneumothorax seen. The cardiac silhouette size is within normal limits. The osseous structures are intact. IMPRESSION: No acute cardiopulmonary process. No interval change compared to previous.
[2022-06-11 11:18] LABS: ALT 32 U/L (4-49); AST 28 U/L (17-59); African American GFR (CKD) >90 (>60 ml/min/1.73 sqM); Alkaline Phosphatase 50 U/L (38-126); Anion Gap 8 mmol/L; Blood Urea Nitrogen 18 mg/dL (9-20); Calcium 10.3 mg/dL (8.4-10.2); Carbon Dioxide 28 mmol/L (22-30); Chloride 103 mmol/L (98-107); Glucose 106 mg/dL (74-99); Magnesium 1.9 mg/dL (1.6-2.3); Non-African American GFR(CKD) >90 (>60 ml/min/1.73 sqM); Potassium 4.5 mmol/L (3.5-5.1); Sodium 139 mmol/L (137-145); Total Bilirubin 0.7 mg/dL (0.2-1.3)
[2022-06-11] MEDS ORDERED: NITROGLYCERIN SL TABS 0.4 MG TAB SUBLINGUAL PRN (11:57)
--- NOTE | 2022-06-11 13:05 | P.CRDCN ---
History of Present Illness Consult date: 06/11/22 Chief complaint: Chest discomfort History of present illness: This is a very pleasant 56-year-old gentleman with a past medical history significant for hypertension and dyslipidemia presented to the emergency department complaining of chest discomfort. The patient was in his usual state of health until about 3 weeks ago. He started experiencing intermittent episodes of chest discomfort. He described the discomfort as a sharp/dull in the middle as well as left side of the chest was no radiation to the arms or neck or shoulders or back. No associated symptoms of shortness of breath or sweating or dizziness or lightheadedness or any feeling of heart racing or fluttering or presyncope or syncope. For the last week or so he noticed that the chest discomfort has been somewhat slightly more intense and more often compared to before. For that reason he decided to come to the hospital. This morning he woke up from sleep and started experiencing discomfort. The patient, could not tell if the chest discomfort is exertional or no but he states most of the time is not exertion related. No coronary artery disease. He does have hypertension and dyslipidemia as risk factors. He was seen by our service in 2019 where he again was admitted with a chest discomfort and ruled out for acute coronary event. He underwent an echo and stress echocardiogram and both came in to be unremarkable. This admission he underwent a workup for the chest pain including troponin which came in to be normal and EKG showing sinus rhythm was no significant ST or T-wave abnormalities concerning for severe underlying coronary artery disease. Beside that he underwent a chest x-ray and that came in to be also unremarkable Past Medical History Past Medical History: Hyperlipidemia, Hypertension Additional Past Medical History / Comment(s): bladder retention, tinnitus, colon polyps. History of Any Multi-Drug Resistant Organisms: None Reported Past Surgical History: Hernia Repair Additional Past Surgical History / Comment(s): Colonoscopy last year with polypectomy. Past Anesthesia/Blood Transfusion Reactions: No Reported Reaction Past Psychological History: No Psychological Hx Reported Smoking Status: Never smoker Past Alcohol Use History: Occasional Past Drug Use History: Marijuana - Past Family History Mother Family Medical History: Cancer, COPD Father Family Medical History: Cancer Sister(s) Family Medical History: No Reported History Medications and Allergies Home Medications Medication Instructions Recorded Confirmed Type [place]-3 Fatty Acids/Fish Oil [Fish 1 cap PO DAILY 12/11/18 06/11/22 History Oil 1,000 mg Softgel] Cholecalciferol [Vitamin D3 (25 50 mcg PO DAILY 06/11/22 06/11/22 History Mcg = 1000 Iu)] Lovastatin [Mevacor] 20 mg PO W/SUPPER 06/11/22 06/11/22 History Multivitamins, Thera [Multivitamin 1 tab PO DAILY 06/11/22 06/11/22 History (formulary)] Omeprazole Magnesium [PriLOSEC OTC] 20 mg PO DAILY 06/11/22 06/11/22 History Zinc Gluconate [Zinc] 50 mg PO DAILY 06/11/22 06/11/22 History lisinopriL [Zestril] 10 mg PO DAILY 06/11/22 06/11/22 History Allergies Allergy/AdvReac Type Severity Reaction Status Date / Time No Known Allergies Allergy Verified 06/11/22 12:42 Physical Exam Vitals: Vital Signs Temp Pulse Pulse Resp BP Pulse Ox 06/11/22 11:00 107 H 18 120/78 99 06/11/22 10:23 88 06/11/22 09:57 98 F 90 18 156/95 99 Intake and Output 06/10/22 06/11/22 06/11/22 22:59 06:59 14:59 Other: Weight 83.007 kg - Constitutional General appearance: no acute distress - Respiratory Respiratory: bilateral: CTA - Cardiovascular Rhythm: regular Heart sounds: normal: S1, S2 Abnormal Heart Sounds: systolic murmur Results 06/11/22 10:21 06/11/22 10:21 Cardiac Enzymes 06/11/22 06/11/22 Range/Units 10:21 10:21 AST 28 (17-59) U/L Troponin I <0.012 (0.000-0.034) ng/mL Coagulation 06/11/22 Range/Units 10:21 PT 11.1 (9.0-12.0) sec APTT 25.0 (22.0-30.0) sec CBC 06/11/22 Range/Units 10:21 WBC 6.0 (3.8-10.6) k/uL RBC 4.33 (4.30-5.90) m/uL Hgb 14.0 (13.0-17.5) gm/dL Hct 41.2 (39.0-53.0) % Plt Count 360 (150-450) k/uL Comprehensive Metabolic Panel 06/11/22 Range/Units 10:21 Sodium 139 (137-145) mmol/L Potassium 4.5 (3.5-5.1) mmol/L Chloride 103 (98-107) mmol/L Carbon Dioxide 28 (22-30) mmol/L BUN 18 (9-20) mg/dL Creatinine 0.82 (0.66-1.25) mg/dL Glucose 106 H (74-99) mg/dL Calcium 10.3 H (8.4-10.2) mg/dL AST 28 (17-59) U/L ALT 32 (4-49) U/L Alkaline Phosphatase 50 (38-126) U/L Total Protein 8.0 (6.3-8.2) g/dL Albumin 5.0 (3.5-5.0) g/dL Current Medications Generic Name Dose Route Start Last Admin Trade Name Freq PRN Reason Stop Dose Admin Aspirin 325 mg 06/12/22 09:00 Aspirin 325 Mg Tab PO DAILY PARRIS Nitroglycerin 0.4 mg 06/11/22 11:57 Nitroglycerin Sl Tabs 0.4 Mg Tab SUBLINGUAL Q5M PRN Chest Pain Intake and Output 06/10/22 06/11/22 06/11/22 22:59 06:59 14:59 Other: Weight 83.007 kg Patient Weight 06/12/22 06:59 Weight 83.007 kg 06/11/22 10:21 06/11/22 10:21 Assessment and Plan Assessment: Assessment Intermittent episodes of chest discomfort Hypertension Dyslipidemia Plan Rule out acute coronary event. Follow-up on the serial cardiac enzymes. First set of troponin came in to be unremarkable We'll also obtain an echocardiogram with Doppler Based on the results of the cardiac enzymes, further recommendation to follow Follow-up with the patient
[2022-06-11] MEDS: ATORVASTATIN 10 MG TAB PO SCH (16:27)
[2022-06-11] MEDS: HEPARIN SODIUM,PORCINE/PF 5,000 UNIT/0.5 ML SYRINGE SQ SCH ×2 (16:28→23:36)
--- NOTE | 2022-06-11 20:09 | P.HPIM ---
History of Present Illness H&P Date: 06/11/22 Chief Complaint: Chest pain Patient is a 56-year-old male with a known history of hypertension, hyperlipidemia and occasional marijuana use presents to ER with complaints of c hest discomfort. Patient states that she has been having on and off left retrosternal chest pain for the past 3 weeks and is coming more often last couple days. Patient states that he is having sharp pains in the lateral chest with some radiation to the left arm and left shoulder. Denied any associated shortness of breath. No associated nausea or vomiting. No headache or dizziness or lightheadedness. Denies any complaints of leg swelling. No palpitations heart racing or fast. Symptoms lasting about few minutes to 30 minutes. No complaints of cough or sputum production. Patient states that he was seen by Dr. Dey in 2019 with similar symptoms. He underwent stress echocardiogram and was also continued on PPIs. Denies any recent illnesses. No recent travel or sick contacts. Chest x-ray on admission showed no acute cardiopulmonary process. No interval change compared to previous. EKG showed sinus rhythm. Laboratory data showed WBC 6.0 hemoglobin 14.0 and platelets 360 sodium 139 potassium 4.5 chloride 103 bicarb is 28 BUN 18 and creatinine 0.82 and calcium 10.3 and troponin x3 negative. Patient had COVID infection about a year ago. Review of Systems Constitutional: Patient denies any fever or chills . no Generalized weakness. Abdomen: Patient denied any nausea or vomiting or abd. pain Cardiovascular: Patient complains of intermittent chest pains. No associated shortness of breath. No palpitations no leg swelling. Respiratory: patient den ied any cough . no sputum production. No shortness of breath Neurologic: Patient denied any numbness or tingling headache. Musculoskeletal: Patient denies any complaints of joint swelling or deformity. Skin: Negative Psychiatric: Negative Endocrine: No heat or cold intolerance. No recent weight gain. Genitourinary: No dysuria or hematuria. All other 14 point ROS negative except the above Past Medical History Past Medical History: Hyperlipidemia, Hypertension Additional Past Medical History / Comment(s): bladder retention, tinnitus, colon polyps. History of Any Multi-Drug Resistant Organisms: None Reported Past Surgical History: Hernia Repair Additional Past Surgical History / Comment(s): Colonoscopy last year with polypectomy. Past Anesthesia/Blood Transfusion Reactions: No Reported Reaction Past Psychological History: No Psychological Hx Reported Smoking Status: Never smoker Past Alcohol Use History: Occasional Past Drug Use History: Marijuana - Past Family History Mother Family Medical History: Cancer, COPD Father Family Medical History: Cancer Sister(s) Family Medical History: No Reported History Medications and Allergies Home Medications Medication Instructions Recorded Confirmed Type [place]-3 Fatty Acids/Fish Oil [Fish 1 cap PO DAILY 12/11/18 06/11/22 History Oil 1,000 mg Softgel] Cholecalciferol [Vitamin D3 (25 50 mcg PO DAILY 06/11/22 06/11/22 History Mcg = 1000 Iu)] Lovastatin [Mevacor] 20 mg PO W/SUPPER 06/11/22 06/11/22 History Multivitamins, Thera [Multivitamin 1 tab PO DAILY 06/11/22 06/11/22 History (formulary)] Omeprazole Magnesium [PriLOSEC OTC] 20 mg PO DAILY 06/11/22 06/11/22 History Zinc Gluconate [Zinc] 50 mg PO DAILY 06/11/22 06/11/22 History lisinopriL [Zestril] 10 mg PO DAILY 06/11/22 06/11/22 History Allergies Allergy/AdvReac Type Severity Reaction Status Date / Time No Known Allergies Allergy Verified 06/11/22 12:42 Physical Exam Vitals: Vital Signs Temp Pulse Pulse Resp BP Pulse Ox 06/11/22 11:00 107 H 18 120/78 99 06/11/22 10:23 88 06/11/22 09:57 98 F 90 18 156/95 99 Intake and Output 06/10/22 06/11/22 06/11/22 22:59 06:59 14:59 Other: Weight 83.007 kg PHYSICAL EXAMINATION: Patient is lying in the bed comfortably, no acute distress, awake alert and oriented.. HEENT: Normocephalic. Neck is supple. Pupils reactive. Nostrils clear. Oral cavity is moist. Neck reveals no JVD, carotid bruits, or thyromegaly. CHEST EXAMINATION: Trachea is central. Symmetrical expansion. Lung bardales clear to auscultation and percussion. CARDIAC: Normal S1, S2 with no gallops. No murmurs ABDOMEN: Soft. Bowel sounds present. Nontender. No organomegaly. No abdominal bruits. Extremities: reveal no edema. No clubbing or cyanosis Neurologically awake, alert, oriented x3 with well-coordinated movements. No focal deficits noted Skin: No rash or skin lesions. Psychiatric: Coperative. Nonsuicidal, Musculoskeletal: No joint swelling or deformity. Normal range of motion. Results CBC & Chem 7: 06/11/22 10:21 06/11/22 10:21 Labs: Abnormal Lab Results - Last 24 Hours (Table) 06/11/22 06/11/22 Range/Units 10:21 10:21 RDW 11.4 L (11.5-15.5) % Glucose 106 H (74-99) mg/dL Calcium 10.3 H (8.4-10.2) mg/dL Thrombosis Risk Factor Assmnt - DVT/VTE Prophylaxis DVT/VTE Prophylaxis: Pharmacologic Prophylaxis ordered - Choose All That Apply Any of the Below Risk Factors Present?: No Assessment and Plan Assessment: Atypical chest pain patient has recurrent left retrosternal chest pains. Rule out ACS. Hypertension Hyperlipidemia GI and DVT prophylaxis Plan: Patient will continue monitoring. Serial EKG and troponin x3 negative. Cardiology has seen the patient and recommended 2D echocardiogram. Follow-up lipid panel and continue with aspirin and statins at this time. Continue with blood pressure medications lisinopril and titrate dose. Follow up closely.
[2022-06-12] MEDS: PANTOPRAZOLE 40 MG TABLET PO SCH (06:34)
[2022-06-12] MEDS: ZINC SULFATE 220 MG CAP PO SCH (08:59)
[2022-06-12] MEDS: ASPIRIN 325 MG TAB PO SCH (08:59)
[2022-06-12] MEDS: HEPARIN SODIUM,PORCINE/PF 5,000 UNIT/0.5 ML SYRINGE SQ SCH ×2 (08:59→15:55)
[2022-06-12] MEDS ORDERED: NON FORMULARY DRUG (Omega-3 Fatty Acids/Fish Oil [Fish Oil 1,000 Mg Softgel] 1 EACH Capsul PO SCH (09:00)
[2022-06-12] MEDS: lisinopriL 10 MG TAB PO SCH (09:00)
[2022-06-12] MEDS: MULTIVITAMINS, THERA 1 EACH TAB PO SCH (09:05)
[2022-06-12] MEDS: CHOLECALCIFEROL 25 MCG (1000 IU) TABLET PO SCH (09:05)
[2022-06-12 09:18] LABS: African American GFR (CKD) 96.4 (60.0-200.0); Blood Urea Nitrogen 18.3 mg/dL (9.0-27.0); Calcium 10.1 mg/dL (8.7-10.3); Carbon Dioxide 27.3 mmol/L (20.0-27.5); Chloride 104 mmol/L (96-109); Chol/HDL Ratio 5.51 Ratio; Glucose 91 mg/dL (70-110); Non-African American GFR(CKD) 83.2 (60.0-200.0); Potassium 4.5 mmol/L (3.5-5.5); Sodium 140 mmol/L (135-145)
--- NOTE | 2022-06-12 10:15 | P.PN ---
Subjective Progress Note Date: 06/12/22 History of present illness: This is a very pleasant 56-year-old gentleman with a past medical history sign ificant for hypertension and dyslipidemia presented to the emergency department complaining of chest discomfort. The patient was in his usual state of health until about 3 weeks ago. He started experiencing intermittent episodes of chest discomfort. He described the discomfort as a sharp/dull in the middle as well as left side of the chest was no radiation to the arms or neck or shoulders or back. No associated symptoms of shortness of breath or sweating or dizziness or lightheadedness or any feeling of heart racing or fluttering or presyncope or syncope. For the last week or so he noticed that the chest discomfort has been somewhat slightly more intense and more often compared to before. For that reason he decided to come to the hospital. This morning he woke up from sleep and started experiencing discomfort. The patient, could not tell if the chest discomfort is exertional or no but he states most of the time is not exertion related. No coronary artery disease. He does have hypertension and dyslipidemia as risk factors. He was seen by our service in 2019 where he again was admitted with a chest discomfort and ruled out for acute coronary event. He underwent an echo and stress echocardiogram and both came in to be unremarkable. This admission he underwent a workup for the chest pain including troponin which came in to be normal and EKG showing sinus rhythm was no significant ST or T-wave abnormalities concerning for severe underlying coronary artery disease. Beside that he underwent a chest x-ray and that came in to be also unremarkable 06/12 Patient denies having any discomfort right now but he did have a few episodes during the night. He states his last stress test was in 2020. He's never had cardiac catheterization done. Troponins with negative 3. Triglycerides 167, cholesterol 185, LDL 118, HDL 33. Repeat BMP unremarkable. D-dimer 0.17. Repe at EKG is a sinus rhythm unchanged from previous. Physical examination: Gen: This is a 56-year-old male. He is resting bed appears to be comfortable. VS: reviewed HEENT: Head is atraumatic, normocephalic. Pupils equal, round. Sclerae is anicteric. NECK: Supple. No JVD. LUNGS: Clear to auscultation. No wheezes or rhonchi. No intercostal retractions. HEART: Regular rate and rhythm. Systolic murmur. ABDOMEN: Soft. No tenderness. EXTREMITIES: No pedal edema. NEUROLOGICAL: Patient is awake, alert and oriented x3. Assessment: Intermittent episodes of chest discomfort Hypertension Dyslipidemia Plan: Ruled out acute coronary event. Obtain 2-D echocardiogram and Doppler study to assess cardiac structure and function Cardiolite stress test today Stress test and echocardiogram are within normal limits, patient is cleared for discharge home today. Nurse practitioner note has been reviewed, I agree with documented findings and plan of care. Patient was seen and examined. Objective - Vital Signs Vital signs: Vital Signs Temp 97.9 F 06/12/22 07:00 Pulse 79 06/12/22 07:00 Resp 16 06/12/22 07:00 BP 119/70 06/12/22 07:00 Pulse Ox 98 06/12/22 07:04 FiO2 Intake & Output 06/11/22 06/12/22 06/12/22 18:59 06:59 18:59 Weight 83.007 kg Other: Voiding Method Toilet # Voids 5 2 # Bowel Movements 1 - Labs CBC & Chem 7: 06/11/22 10:21 06/12/22 05:38 Labs: Abnormal Lab Results - Last 24 Hours (Table) 06/11/22 06/11/22 06/12/22 Range/Units 10:21 10:21 05:38 RDW 11.4 L (11.5-15.5) % Anion Gap 8.70 L (10.00-18.00) mmol/L Glucose 106 H (74-99) mg/dL Calcium 10.3 H (8.4-10.2) mg/dL Triglycerides 167.00 H (0.00-149.00) mg/dL HDL Cholesterol 33.60 L (40.00-60.00) mg/dL
--- NOTE | 2022-06-12 11:08 | CA ---
Transthoracic Echo Report Name: Sandor Davila Age: 56 Gender: M : 1965 Exam Date: 06/12/2022 08:41 Exam Location: [facility] Ht (in): 72 Wt (lb): 183 Ordering Physician: Fady Adams Attending/Referring Phys: [id number], Angie Manager Local Mariam Ingram RDCS Procedure CPT: Indications: Chest Pain Cardiac Hx: Technical Quality: Contrast 1: Total Dose (mL): Contrast 2: Total Dose (mL): MEASUREMENTS (Male / Female) Normal Values 2D ECHO LV Diastolic Diameter PLAX 4.4 cm 4.2 - 5.9 / 3.9 - 5.3 cm LV Systolic Diameter PLAX 2.7 cm IVS Diastolic Thickness 1.1 cm 0.6 - 1.0 / 0.6 - 0.9 cm LVPW Diastolic Thickness 1.2 cm 0.6 - 1.0 / 0.6 - 0.9 cm LV Relative Wall Thickness 0.5 RV Internal Dim ED PLAX 3.8 cm LA Systolic Diameter LX 3.0 cm 3.0 - 4.0 / 2.7 - 3.8 cm LV Diastolic Volume MOD BP 85.8 cm??? 67 - 155 / 56 - 104 cm??? LV Systolic Volume MOD BP 32.6 cm??? 22 - 58 / 19 - 49 cm??? LV Ejection Fraction MOD BP 62.0 % >= 55 % LV Diastolic Volume MOD 4C 90.6 cm??? LV Systolic Volume MOD 4C 31.3 cm??? LV Ejection Fraction MOD 4C 65.5 % LV Diastolic Length 4C 7.7 cm LV Systolic Length 4C 6.6 cm LV Diastolic Volume MOD 2C 81.1 cm??? LV Systolic Volume MOD 2C 32.7 cm??? LV Ejection Fraction MOD 2C 59.6 % LV Diastolic Length 2C 7.6 cm LV Systolic Length 2C 6.3 cm LA Volume 29.1 cm??? 18 - 58 / 22 - 52 cm??? M-MODE Aortic Root Diameter MM 3.6 cm LA Systolic Diameter MM 3.0 cm LA Ao Ratio MM 0.8 MV E Point Septal Separation 0.3 cm AV Cusp Separation MM 1.6 cm DOPPLER MV E' Velocity 8.8 cm/s TR Peak Velocity 181.9 cm/s TR Peak Gradient 13.2 mmHg Right Ventricular Systolic Press 18.2 mmHg FINDINGS Left Ventricle Mildly increased septal wall thickness. Left ventricular cavity size normal. Left ventricular ejection fraction is estimated at 55 %. Right Ventricle The right ventricle is normal in size and function. Right Atrium The right atrium is normal in size. Left Atrium The left atrium is normal in size. Mitral Valve Structurally normal mitral valve without significant stenosis or prolapse. There is mild mitral regurgitation. Aortic Valve Structurally normal aortic valve without significant sclerosis or stenosis. There is no aortic regurgitation. Tricuspid Valve Structurally normal tricuspid valve without significant stenosis. Pulmonary artery systolic pressure is normal. Pulmonic Valve Structurally normal pulmonic valve without significant stenosis. There is no pulmonic regurgitation. Pericardium Normal pericardium without effusion. Aorta Normal aortic root dimension. CONCLUSIONS Normal LV systolic function Mild mitral regurgitation Previewed by: Dr. Maxwell Johnson MD (Electronically Signed) Final Date: 12 June 2022 11:07
--- NOTE | 2022-06-12 11:40 | CA ---
Exercise Stress Test Report Name: Sandor Davila Exam Date: 06/12/2022 10:21 Exam Location: [facility] Stress Ht (in): 72 Wt (lb): 183 BSA: 2.05 Ordering Phys: Daylin Vaughn Referring Phys: DWAYNE, Technologist: Zay Bro Age: 56 Gender: M : 1965 Procedure CPT: Indications: Reflex order-Stress test ICD-10 Codes: Patient History: CHEST PAIN, NUMBNESS IN FACE/NECK, HTN, ELEVATED CHOLESTEROL LEVELS, FAMILY HX OF HEART DISEASE, FORMER SMOKER (QUIT 10 YEARS AGO), COPD Medications: Meds past 24 hrs: Pretest Chest Pain: STRESS TEST Sander Protocol Exercise Duration (min:sec): 12:[address] Depressions (mm): Angina Score: Ceballos Score: Resting HR (bpm): 99 Peak HR (bpm): 179 Resting BP (mmHg): 118 / 80 Peak BP (mmHg): 174 / 75 MPHR: 163 Target HR: 139 % MPHR: 110 METS: 12.1 Total Dose: Peak Dose: Atropine: Double Product: 86038 BP Response: Stress Termination: Stress Symptoms: Stress Summary: ECG ANALYSIS Resting ECG: Normal sinus rhythm normal axis normal intervals Stress ECG: Patient exercised on Sander protocol for 12 minutes achieving 13 mets 85% of predicted maximal heart rate without chest pain or diagnostic ST segment depression CONCLUSIONS Excellent exercise tolerance Negative stress test by EKG criteria Dr. Maxwell Johnson MD (Electronically Signed) Final Date: 12 June 2022 11:39
--- NOTE | 2022-06-12 12:48 | NM ---
EXAMINATION TYPE: NM stress cardiolite complete DATE OF EXAM: 06/12/2022 COMPARISON: NONE HISTORY: History of hypertension and hypercholesterolemia presents with chest pain. TECHNIQUE: After the intravenous administration of 9.9 mCi Tc 99m Sestamibi - Rest images obtained 4 5 minutes post injection. The patient exercised using a HAYES protocol and 1 minute prior to peak e xercise was injected with 25.6 mCi Tc 99m Sestamibi - Stress images obtained 15 minutes post injectio n. FINDINGS: Targeted heart rate was achieved during performance of the study. Review of polar maps shows small fo geeta area anterior aspect left lateral wall with suggestion of diminished radiotracer uptake on stress versus rest images. Raw data shows diminished color intensity or radiotracer uptake involving signif icant portion on short axis views anterior left ventricular wall that persists but less well seen on vertical long axis views. Similar findings noted on horizontal long axis views. Gated analysis shows normal wall motion with an estimated left ventricular ejection fraction of 71 %. IMPRESSION: Cannot exclude areas of acute stress-induced ischemia particularly anterior and lateral l eft ventricular chouhdary. Consider direct catheter angiogram follow-up based on clinical correlation wit h degree of suspicion and EKG correlation.
--- NOTE | 2022-06-12 16:06 | P.PN ---
Subjective Progress Note Date: 06/12/22 Patient is a 56-year-old male with a known history of hypertension, hyperlipidemia and occasional marijuana use presents to ER with complaints of chest discomfort. Patient states that she has been having on and off left retrosternal chest pain for the past 3 weeks and is coming more often last couple days. Patient states that he is having sharp pains in the lateral chest with some radiation to the left arm and left shoulder. Denied any associated shortness of breath. No associated nausea or vomiting. No headache or dizziness or lightheadedness. Denies any complaints of leg swelling. No palpitations heart racing or fast. Symptoms lasting about few minutes to 30 minutes. No complaints of cough or sputum production. Patient states that he was seen by Dr. Dey in 2019 with similar symptoms. He underwent stress echocardiogram and was also continued on PPIs. Denies any recent illnesses. No recent travel or sick contacts. Chest x-ray on admission showed no acute cardiopulmonary process. No interval change compared to previous. EKG showed sinus rhythm. Laboratory data showed WBC 6.0 hemoglobin 14.0 and platelets 360 sodium 139 potassium 4.5 chloride 103 bicarb is 28 BUN 18 and creatinine 0.82 and calcium 10.3 and troponin x3 negative. Patient had COVID infection about a year ago. 06/12/2022 Patient is seen and evaluated in follow-up just underwent stress testing and awaiting final report. Patient currently reports he does not have chest pain or palpitations. Patient awaiting to eat something. Patient is afebrile denies any shortness of breath. No reports of nausea or vomiting and patient was tolerating diet. Patient reports he underwent treadmill stress testing. Review of systems: Constitutional: No reports of fatigue, fever, or chills Cardiovascular: No reports of chest pain or palpitations Respiratory: No reports of shortness of breath or cough GI: No reports of nausea, vomiting, or diarrhea : No reports of dysuria or retention Neurovascular: No reports of weakness or numbness All medications have been reviewed Active Medications Aspirin (Aspirin 325 Mg Tab) 325 mg PO DAILY [facility] Last Admin: 06/12/22 08:59 Dose: 325 mg Atorvastatin Calcium (Atorvastatin 10 Mg Tab) 10 mg PO W/SUPPER [facility] Last Admin: 06/11/22 16:27 Dose: 10 mg Cholecalciferol (Cholecalciferol 25 Mcg (1000 Iu) Tablet) 50 mcg PO DAILY [facility] Last Admin: 06/12/22 09:05 Dose: 50 mcg Heparin Sodium (Porcine) (Heparin Sodium,Porcine/Pf 5,000 Unit/0.5 Ml Syringe) 5,000 unit SQ Q8HR [facility] Last Admin: 06/12/22 15:55 Dose: 5,000 unit Lisinopril (Lisinopril 10 Mg Tab) 10 mg PO DAILY [facility] Last Admin: 06/12/22 09:00 Dose: 10 mg Multivitamins (Multivitamins, Thera 1 Each Tab) 1 each PO DAILY [facility] Last Admin: 06/12/22 09:05 Dose: 1 each Nitroglycerin (Nitroglycerin Sl Tabs 0.4 Mg Tab) 0.4 mg SUBLINGUAL Q5M PRN PRN Reason: Chest Pain Pantoprazole Sodium (Pantoprazole 40 Mg Tablet) 40 mg PO DAILY@0730 [facility] Last Admin: 06/12/22 06:34 Dose: 40 mg Zinc Sulfate (Zinc Sulfate 220 Mg Cap) 220 mg PO DAILY [facility] Last Admin: 06/12/22 08:59 Dose: 220 mg Physical exam: Patient is sitting up in the bed comfortably, no acute distress, awake alert and oriented.. HEENT: Normocephalic. Neck is supple. Pupils reactive. Nostrils clear. Oral c avity is moist. Neck reveals no JVD, carotid bruits, or thyromegaly. CHEST EXAMINATION: Trachea is central. Symmetrical expansion. Lung bardales clear to auscultation and percussion. CARDIAC: Normal S1, S2 with no gallops. No murmurs ABDOMEN: Soft. Bowel sounds present. Nontender. No organomegaly. No abdominal bruits. Extremities: reveal no edema. No clubbing or cyanosis Neurologically awake, alert, oriented x3 with well-coordinated movements. No focal deficits noted Skin: No rash or skin lesions. Psychiatric: Cooperative. Non-suicidal, Musculoskeletal: No joint swelling or deformity. Normal range of motion. Assessment: Atypical chest pain patient has recurrent left retrosternal chest pains. Ruled out ACS. Abnormal stress test cannot exclude ischemia, possible plans for cardiac catheterization in a.m. Hypertension Hyperlipidemia GI and DVT prophylaxis Full code Plan: Patient underwent stress test with treadmill showing excellent exercise tolerance and negative stress test based on the EKG criteria although the Cardiolite stress portion showed an EF of approximately 71% although there are areas that cannot exclude acute stress-induced ischemia particularly anterior an d lateral left ventricular choudhary. Recommending direct catheter angiogram for clinical correlation. Cardiology is following and discussing possible cardiac catheterization in the a.m. Recommend continue telemetry monitoring and current medications and nothing by mouth at midnight in the event of cardiac catheterization Due to multiple complex medical issues, prognosis is guarded The impression and plan of care has been dictated by Cynthia Colindres, Nurse Practitioner as directed. Dr. Joy MD I have performed a history and examination and MDM of this patient, discussed the same with the dictator, and agree with the dictator's assessment and plan as written ,documented as a scribe. Based on total visit time, I have performed more than 50% of the visit. Objective - Vital Signs Vital signs: Vital Signs Temp 97.9 F 06/12/22 07:00 Pulse 79 06/12/22 07:00 Resp 16 06/12/22 07:00 BP 119/70 06/12/22 07:00 Pulse Ox 98 06/12/22 07:04 FiO2 Intake & Output 06/11/22 06/12/22 06/12/22 18:59 06:59 18:59 Weight 83.007 kg Other: Voiding Method Toilet # Voids 5 2 # Bowel Movements 1 - Labs CBC & Chem 7: 06/11/22 10:21 06/12/22 05:38 Labs: Abnormal Lab Results - Last 24 Hours (Table) 06/11/22 06/11/22 06/12/22 Range/Units 10:21 10:21 05:38 RDW 11.4 L (11.5-15.5) % Anion Gap 8.70 L (10.00-18.00) mmol/L Glucose 106 H (74-99) mg/dL Calcium 10.3 H (8.4-10.2) mg/dL Triglycerides 167.00 H (0.00-149.00) mg/dL HDL Cholesterol 33.60 L (40.00-60.00) mg/dL
[2022-06-12] MEDS ORDERED: ALPRAZolam 0.5 MG TAB PO PRN (16:33)
[2022-06-12] MEDS ORDERED: ALPRAZolam 0.25 MG TAB PO PRN (16:33)
[2022-06-12] MEDS ORDERED: NITROGLYCERIN SL TABS 0.4 MG TAB SUBLINGUAL PRN (16:33)
[2022-06-12 17:15] LABS: Glucose,Whole Blood 100 mg/dL (70-110)
[2022-06-12] MEDS: ATORVASTATIN 10 MG TAB PO SCH (17:42)
[2022-06-13] MEDS: HEPARIN SODIUM,PORCINE/PF 5,000 UNIT/0.5 ML SYRINGE SQ SCH ×3 (00:11→17:02)
[2022-06-13] MEDS: SODIUM CHLORIDE 0.9% 1,000 ML in EMPTY BAG 1 BAG IV SCH ×2 (00:12→16:20)
[2022-06-13] MEDS: ASPIRIN 325 MG TAB PO SCH (05:16)
[2022-06-13] MEDS: ZINC SULFATE 220 MG CAP PO SCH (05:16)
[2022-06-13] MEDS: PANTOPRAZOLE 40 MG TABLET PO SCH (05:17)
[2022-06-13] MEDS: CHOLECALCIFEROL 25 MCG (1000 IU) TABLET PO SCH (05:17)
[2022-06-13] MEDS: MULTIVITAMINS, THERA 1 EACH TAB PO SCH (05:17)
[2022-06-13] MEDS: lisinopriL 10 MG TAB PO SCH (05:17)
[2022-06-13] MEDS ORDERED: ASPIRIN 325 MG TAB PO ONE (06:00)
[2022-06-13] MEDS ORDERED: ATORVASTATIN 80 MG TAB PO ONE (06:00)
[2022-06-13] MEDS ORDERED: HEPARIN SODIUM,PORCINE 2,500 UNIT in SODIUM CHLORIDE 0.9% 250 ML IRRIGATION PRN (07:00)
[2022-06-13] MEDS ORDERED: HEPARIN SODIUM,PORCINE 10,000 UNIT in SODIUM CHLORIDE 0.9% 1,000 ML IRRIGATION PRN (07:00)
--- NOTE | 2022-06-13 12:09 | P.PN ---
Subjective Progress Note Date: 06/13/22 Patient is a 56-year-old male with a known history of hypertension, hyperlipidemia and occasional marijuana use presents to ER with complaints of chest discomfort. Patient states that she has been having on and off left retrosternal chest pain for the past 3 weeks and is coming more often last couple days. Patient states that he is having sharp pains in the lateral chest with some radiation to the left arm and left shoulder. Denied any associated shortness of breath. No associated nausea or vomiting. No headache or dizziness or lightheadedness. Denies any complaints of leg swelling. No palpitations heart racing or fast. Symptoms lasting about few minutes to 30 minutes. No complaints of cough or sputum production. Patient states that he was seen by Dr. Dey in 2019 with similar symptoms. He underwent stress echocardiogram and was also continued on PPIs. Denies any recent illnesses. No recent travel or sick contacts. Chest x-ray on admission showed no acute cardiopulmonary process. No interval change compared to previous. EKG showed sinus rhythm. Laboratory data showed WBC 6.0 hemoglobin 14.0 and platelets 360 sodium 139 potassium 4.5 chloride 103 bicarb is 28 BUN 18 and creatinine 0.82 and calcium 10.3 and troponin x3 negative. Patient had COVID infection about a year ago. 06/12/2022 Patient is seen and evaluated in follow-up just underwent stress testing and awaiting final report. Patient currently reports he does not have chest pain or palpitations. Patient awaiting to eat something. Patient is afebrile denies any shortness of breath. No reports of nausea or vomiting and patient was tolerating diet. Patient reports he underwent treadmill stress testing. 06/13/2022 Patient is seen and evaluated in follow-up this morning currently nothing by mouth as patient is scheduled to undergo cardiac catheterization today. Patient has been on hospital monitor overnight with no acute issues noted. Patient is currently in sinus rhythm. Patient somewhat anxious about the procedure and reports he prefers a stent to be placed so that he doesn't continue to have chest pain and keep returning to the hospital. Education and guidance provided on procedure and protocol and discussed with the patient at length about discussing overall concerns with cardiology. Will await cardiac catheterization report and input from cardiology. Patient is currently afebrile denies chest pain at the moment home denies shortness of breath or palpitations. Patient has no reports of nausea or vomiting noted. Patient has been up and walking with no difficulties. Review of systems: Constitutional: No reports of fatigue, fever, or chills Cardiovascular: No reports of chest pain or palpitations, reports he had a brief episode of chest pain last night that resolved Respiratory: No reports of shortness of breath or cough GI: No reports of nausea, vomiting, or diarrhea : No reports of dysuria or retention Neurovascular: No reports of weakness or numbness All medications have been reviewed Active Medications Alprazolam (Alprazolam 0.25 Mg Tab) 0.25 mg PO Q6HR PRN PRN Reason: Mild Anxiety Alprazolam (Alprazolam 0.5 Mg Tab) 0.5 mg PO Q6HR PRN PRN Reason: Moderate Anxiety Aspirin (Aspirin 325 Mg Tab) 325 mg PO DAILY [facility] Last Admin: 06/13/22 05:16 Dose: Not Given Atorvastatin Calcium (Atorvastatin 10 Mg Tab) 10 mg PO W/SUPPER [facility] Last Admin: 06/12/22 17:42 Dose: 10 mg Cholecalciferol (Cholecalciferol 25 Mcg (1000 Iu) Tablet) 50 mcg PO DAILY [facility] Last Admin: 06/13/22 05:17 Dose: 50 mcg Heparin Sodium (Porcine) (Heparin Sodium,Porcine/Pf 5,000 Unit/0.5 Ml Syringe) 5,000 unit SQ Q8HR [facility] Last Admin: 06/13/22 05:16 Dose: 5,000 unit Heparin Sodium (Porcine) 10, (000 unit/ Sodium Chloride) 1,001 mls @ 999 mls/hr IRRIGATION ONCE PRN PRN Reason: INTRA-OP Stop: 06/13/22 23:00 Heparin Sodium (Porcine) 2,500 (unit/ Sodium Chloride) 250.5 mls @ 250 mls/hr IRRIGATION ONCE PRN PRN Reason: INTRA-OP Stop: 06/13/22 23:00 Sodium Chloride 1,000 ml/ IV (Solution) 1,000 mls @ 83.007 mls/hr IV .Q12H3M [facility] Last Admin: 06/13/22 00:12 Dose: 83.007 mls/hr Lisinopril (Lisinopril 10 Mg Tab) 10 mg PO DAILY [facility] Last Admin: 06/13/22 05:17 Dose: 10 mg Multivitamins (Multivitamins, Thera 1 Each Tab) 1 each PO DAILY [facility] Last Admin: 06/13/22 05:17 Dose: 1 each Nitroglycerin (Nitroglycerin Sl Tabs 0.4 Mg Tab) 0.4 mg SUBLINGUAL Q5M PRN PRN Reason: Chest Pain Pantoprazole Sodium (Pantoprazole 40 Mg Tablet) 40 mg PO DAILY@0730 [facility] Last Admin: 06/13/22 05:17 Dose: 40 mg Zinc Sulfate (Zinc Sulfate 220 Mg Cap) 220 mg PO DAILY [facility] Last Admin: 06/13/22 05:16 Dose: 220 mg Physical exam: Patient is sitting up in the bed comfortably, no acute distress, awake alert and oriented.. Slightly anxious HEENT: Normocephalic. Neck is supple. Pupils reactive. Nostrils clear. Oral cavity is moist. Neck reveals no JVD, carotid bruits, or thyromegaly. CHEST EXAMINATION: Trachea is central. Symmetrical expansion. Lung bardales clear to auscultation and percussion. CARDIAC: Normal S1, S2 with no gallops. No murmurs ABDOMEN: Soft. Bowel sounds present. Nontender. No organomegaly. No abdominal bruits. Extremities: reveal no edema. No clubbing or cyanosis Neurologically awake, alert, oriented x3 with well-coordinated movements. No focal deficits noted Skin: No rash or skin lesions. Psychiatric: Cooperative. Non-suicidal, Musculoskeletal: No joint swelling or deformity. Normal range of motion. Assessment: Atypical chest pain patient has recurrent left retrosternal chest pains. Ruled out ACS. Abnormal stress test cannot exclude ischemia, possible plans for cardiac catheterization today Hypertension Hyperlipidemia GI and DVT prophylaxis Full code Plan: Patient underwent stress test with treadmill showing excellent exercise tolerance and negative stress test based on the EKG criteria although the Cardiolite stress portion showed an EF of approximately 71% although there are areas that cannot exclude acute stress-induced ischemia particularly anterior and lateral left ventricular choudhary. Recommending direct catheter angiogram for clinical correlation. Cardiology is following and plan is for cardiac catheterization today. Patient is currently nothing by mouth and will await ca rdiology report. Recommend continue telemetry monitoring and current medications and will await and appreciate input and recommendations from cardiology Due to multiple complex medical issues, prognosis is guarded Cardiac catheterization currently pending and will follow-up after the procedure Possible discharge in 24-48 hours The impression and plan of care has been dictated by Cynthia Colindres, Nurse Practitioner as directed. Dr. Joy MD I have performed a history and examination and MDM of this patient, discussed the same with the dictator, and agree with the dictator's assessment and plan as written ,documented as a scribe. Based on total visit time, I have performed more than 50% of the visit. Objective - Vital Signs Vital signs: Vital Signs Temp 97.8 F 06/13/22 07:00 Pulse 72 06/13/22 07:00 Resp 17 06/13/22 07:00 BP 102/73 06/13/22 07:00 Pulse Ox 96 06/13/22 07:00 FiO2 Intake & Output 06/12/22 06/13/22 06/13/22 18:59 06:59 18:59 Intake Total 618 500 Balance 618 500 Intake: Oral 618 500 Other: Voiding Method Toilet # Voids 4 2 - Labs CBC & Chem 7: 06/11/22 10:21 06/12/22 05:38
[2022-06-13] MEDS ORDERED: LIDOCAINE 1% INJ 10MG/ML (5 ML VIAL-PF) SQ ONE (13:25)
[2022-06-13] MEDS ORDERED: MIDAZOLAM 2 MG/2 ML VIAL IV ONE (13:36)
[2022-06-13] MEDS ORDERED: VERAPAMIL SYRINGE (5 MG/10 ML) INTRAARTER ONE (13:36)
[2022-06-13] MEDS ORDERED: HEPARIN SODIUM 1,000 UN/ML (10ML VL) IV ONE (13:37)
[2022-06-13] MEDS ORDERED: SODIUM CHLORIDE 0.9% 1,000 ML IV ONE (13:38)
[2022-06-13] MEDS ORDERED: IOPAMIDOL-370 125ML BTL INJ ONE (13:39)
[2022-06-13] MEDS ORDERED: RX INFO: IV CONTRAST WAS GIVEN 1 EACH MISC MISCELLANE PRN (13:42)
[2022-06-13] MEDS ORDERED: SODIUM CHLORIDE 0.9% 1,000 ML IV SCH (13:45)
--- NOTE | 2022-06-13 13:47 | P.PCN ---
Date of Procedure: 06/13/22 Operative Findings: CARDIAC CATHETERIZATION PERFORMING PHYSICIAN: Donavon Turner MD, RPVI PROCEDURE PERFORMED: 1. Selective right and left coronary angiogram 2. Left heart catheterization INDICATION: Chest discomfort and this 86-year-old gentleman who underwent a stress test came in to be abnormal showing inferolateral ischemia COMPLICATION: None APPROACH: Right radial artery LEVEL OF SEDATION: Moderate with a sedation length of 15 minutes PROCEDURE DESCRIPTION: After obtaining an informed consent, the patient was brought to cardiac cath laboratory technician. Local anesthesia was performed using lidocaine subcutaneously. The right radial artery was cannulated using Seldinger technique, the guidewire passed easily, following that we advanced a 5-[place] sheath dilator assembly, the wire and dilator were removed and sheath was flushed. Following that, 2 mg of verapamil along with 5000 unit heparin were given. Selective right and left coronary angiogram using a 6-[place] JR4 and JL 3.5 catheters. Following that we did left heart catheterization using 6-[place] pigtail catheter. The procedure was completed there was no complication. SELECTIVE CORONARY ANGIOGRAM: The right coronary artery: Large caliber vessel and a dominant vessel. The RCA is angiographically normal. Distally bifurcates into PDA and PLV branches and both appeared to be angiographically normal. Left main: Is angiographically normal. Bifurcates into LCx and LAD The left circumflex: Large caliber vessel and nondominant vessel. The LCx gives rises into a large OM branch which appeared to be angiographically normal The left anterior descending artery: Large caliber vessel. Its angiographically normal and gives rise into a diagonal branch which seems to be angiographically normal HEMODYNAMICS: The LVEDP was 6 mmHg was no significant gradient across aortic valve CONCLUSION: 1. Normal coronary angiogram 2. The left side filling pressure POSTPROCEDURE MANAGEMENT: Medical treatment and follow-up with the patient
[2022-06-13 14:11] VITALS: TEMP 98.1
[2022-06-13 16:32] VITALS: RESP 18
[2022-06-13] MEDS: ATORVASTATIN 10 MG TAB PO SCH (17:02)
[2022-06-13 18:04] VITALS: BP 146/83; PULSE 78
--- NOTE | 2022-06-15 21:00 | P.DS ---
Providers Date of admission: 06/11/22 11:53 Expected date of discharge: 06/13/22 Attending physician: Yosef Low MD Consults: 06/11/22 11:58 Consult Physician Urgent Consulting Provider: Donavon Turner Consult Reason/Comments: chest pain Do you want consulting provider notified?: Yes Primary care physician: Tad Forrest Hospital Course: Final diagnosis Atypical chest pain patient has recurrent left retrosternal chest pains. Ruled out ACS. Abnormal stress test cannot exclude ischemia, post cardiac catheterization with no stenting Hypertension Hyperlipidemia GI and DVT prophylaxis Full code Discharge disposition Patient is being discharged in a stable condition with guarded prognosis to home. Patient will follow-up with Dr. Forrest in the outpatient setting upon d ischarge. Patient is to follow up with cardiology as scheduled. Total time taken is greater than 35 minutes. Hospital course This is a 56-year-old male who was recently admitted with chest pain and troponins were negative. Patient was seen and evaluated by cardiology and underwent stress testing and unable to completely exclude areas of remote ischemia and recommending cardiac catherization for further evaluation. Cardiac cath was clear with no stenting required and recommending maximizing medical management and close outpatient follow up. Patient cleared by cardiology for discharge. Currently no reports of chest pain, shortness of breath, or palpitations. Patient is afebrile. No reports of nausea or vomiting and patient is tolerating diet. Patient will be discharged home today. Guarded prognosis. Physical exam: Gen: This is a 56 year old male who is awake, alert and oriented x3. Well developed, well nourished. HEENT: Head is atraumatic, normocephalic. Pupils equal, round. Sclerae is anicteric. NECK: Supple. No JVD. No lymphadenopathy. No thyromegaly. LUNGS: Clear to auscultation. No wheezes or rhonchi. No intercostal retractions. HEART: Regular rate and rhythm. No murmur. ABDOMEN: Soft. Bowel sounds are present. No masses. No tenderness. EXTREMITIES: No pedal edema. No calf tenderness. NEUROLOGICAL: Patient is awake, alert and oriented x3. Cranial nerves 2 through 12 are grossly intact. Please refer to medication reconciliation sheet for a list of medications. The impression and plan of care has been dictated by Cynthia Colindres, Nurse Practitioner as directed. Dr. Joy MD I have performed a history and examination and MDM of this patient, discussed the same with the dictator, and agree with the dictator's assessment and plan as written ,documented as a scribe. Based on total visit time, I have performed more than 50% of the visit. Patient Condition at Discharge: Stable Plan - Discharge Summary Discharge Rx Participant: No New Discharge Prescriptions: Continue [place]-3 Fatty Acids/Fish Oil [Fish Oil 1,000 mg Softgel] 1 cap PO DAILY Cholecalciferol [Vitamin D3 (25 Mcg = 1000 Iu)] 50 mcg PO DAILY Omeprazole Magnesium [PriLOSEC OTC] 20 mg PO DAILY Multivitamins, Thera [Multivitamin (formulary)] 1 tab PO DAILY Lovastatin [Mevacor] 20 mg PO W/SUPPER lisinopriL [Zestril] 10 mg PO DAILY Zinc Gluconate [Zinc] 50 mg PO DAILY Discharge Medication List [place]-3 Fatty Acids/Fish Oil [Fish Oil 1,000 mg Softgel] 1 cap PO DAILY 12/11/18 [History] Cholecalciferol [Vitamin D3 (25 Mcg = 1000 Iu)] 50 mcg PO DAILY 06/11/22 [History] Lovastatin [Mevacor] 20 mg PO W/SUPPER 06/11/22 [History] Multivitamins, Thera [Multivitamin (formulary)] 1 tab PO DAILY 06/11/22 [History] Omeprazole Magnesium [PriLOSEC OTC] 20 mg PO DAILY 06/11/22 [History] Zinc Gluconate [Zinc] 50 mg PO DAILY 06/11/22 [History] lisinopriL [Zestril] 10 mg PO DAILY 06/11/22 [History] Follow up Appointment(s)/Referral(s): Donavon Turner MD [STAFF PHYSICIAN] - 1 Week Tad Forrest MD [Primary Care Provider] - 06/15/22 11:00 am Patient Instructions/Handouts: Heart Catheterization (DC) Activity/Diet/Wound Care/Special Instructions: activity limited until follow up Follow-up with primary care provider on discharge Follow-up with cardiology in one week Continue taking medications as prescribed Continue heart healthy diet Discharge Disposition: HOME SELF-CARE
== END 2022-06-13 19:10 | disposition home or self-care (01) ==
LOC: EC 09:43 → 6NMEDSUR 11:53
PROVIDERS: ADMIT Internal Medicine; ATTEND Internal Medicine
DX: R07.89 Other chest pain (principal); R94.39 Abnormal result of other cardiovascular function study; I34.0 Nonrheumatic mitral (valve) insufficiency; I10 Essential (primary) hypertension; E78.5 Hyperlipidemia, unspecified; R33.9 Retention of urine, unspecified; H93.19 Tinnitus, unspecified ear; Z79.82 Long term (current) use of aspirin; Z79.899 Other long term (current) drug therapy; Z86.16 Personal history of COVID-19; Z86.010 Personal history of colon polyps; Z98.890 Other specified postprocedural states; Z82.5 Family history of asthma and other chronic lower respiratory diseases; Z80.9 Family history of malignant neoplasm, unspecified
CPT/HCPCS: 96372 ×3; 99285; 36415; 94760; 93005; 93017; 93306; 93458; 85379; 80061; 80053; 80048; 84443; 83735; 84484; 85025; 85610; 85730; 71046; 78452; 99152; G0378 ×3; C1769; C1894; A9500; J2250; J2001; J1644 ×4; Q9967

== ENCOUNTER 2024-09-17 16:13 | Observation (INO) | payer BC ==
[2024-09-17 16:55] LABS: Basophils # (A) 0.02 10*3/uL (0.00-0.10); Basophils % (A) 0.3 %; Eosinophils # (A) 0.04 10*3/uL (0.04-0.35); Eosinophils % (A) 0.7 %; HCT 39.2 % (39.6-50.0); HGB 13.1 g/dL (13.0-17.0); Lymphocytes # (A) 1.33 10*3/uL (0.90-5.00); MCH 31.5 pg (27.0-32.0); MCHC 33.4 g/dL (32.0-37.0); MCV 94.2 fL (80.0-97.0); Mean Platelet Volume 10.7 fL (9.5-12.2); Monocytes # (A) 0.26 10*3/uL (0.20-1.00); Monocytes % (A) 4.5 %; Neutrophils # (A) 4.13 10*3/uL (1.80-7.70); Neutrophils % (A) 71.3 %; Platelet Count 274 10*3/uL (140-440); RBC 4.16 10*6/uL (4.40-5.60); RDW 12.5 % (11.5-14.5); WBC 5.79 10*3/uL (4.50-10.00)
[2024-09-17 17:07] LABS: Partial Thromboplastin Time 24.7 sec (22.0-30.0); Prothrombin Time 11.5 sec (10.0-12.5)
[2024-09-17 17:13] LABS: ALT 21 U/L (4-49); AST 24 U/L (17-59); African American GFR (CKD) >90 (>60 ml/min/1.73 sqM); Albumin 4.7 g/dL (3.5-5.0); Alkaline Phosphatase 48 U/L (38-126); Anion Gap 11 mmol/L; Blood Urea Nitrogen 22 mg/dL (9-20); Calcium 10.2 mg/dL (8.4-10.2); Carbon Dioxide 25 mmol/L (22-30); Chloride 102 mmol/L (98-107); Glucose 90 mg/dL (74-99); Non-African American GFR(CKD) >90 (>60 ml/min/1.73 sqM); Potassium 4.5 mmol/L (3.5-5.1); Sodium 138 mmol/L (137-145); Total Bilirubin 0.4 mg/dL (0.2-1.3); Total Protein 7.5 g/dL (6.3-8.2)
[2024-09-17 17:21] LABS: NT-Pro-B-Type Natriuretic Pept <20 pg/mL
--- NOTE | 2024-09-17 17:47 | XR ---
EXAMINATION TYPE: XR chest 2V DATE OF EXAM: 09/17/2024 5:20 PM COMPARISON: Chest radiographs from 06/11/2022. CLINICAL INDICATION: Male, 58 years old with history of Chest Pain; TECHNIQUE: XR chest 2V Frontal and lateral views of the chest. FINDINGS: Lungs/Pleura: There is no evidence of pleural effusion, focal consolidation, or pneumothorax. Pulmonary vascularity: Unremarkable. Heart/mediastinum: Cardiomediastinal silhouette is unremarkable. Musculoskeletal: No acute osseous pathology. Other findings: None IMPRESSION: No acute cardiopulmonary disease/process. [facility], , 09/17/2024 5:44 PM
--- NOTE | 2024-09-17 19:03 | ED ---
Chest Pain HPI - General Chief Complaint: Chest Pain Stated Complaint: Chest Pain Time Seen by Provider: 09/17/24 16:25 Source: patient Mode of arrival: ambulatory Limitations: no limitations - History of Present Illness Initial Comments: 58-year-old male presents to the emergency department with chest pain. He was sent in by Dr. Forrest. The patient follows with Dr. Rivera. He has had intermittent chest discomfort for the past 6 days. Denies any provocative factors. Not exertional in nature. Describes it as a pressure sensation over his central chest. He has not taken anything to alleviate the symptoms. Has been bothering him daily. The symptoms will self resolve within 30 minutes to a couple of hours. He went into Dr. Forrest's office today who completed an EKG and recommended that he go over the hospital. He did have a CT of his chest for the lung protocol on September 02 and it was found that he had a severe coronary artery calcification. Patient does have risk factors of hypertension and high cholesterol. He did have a heart cath 2 years ago which was negative. Patient denies any active symptoms at this time. No calf pain or swelling. No shortness of breath. No ripping or tearing station to his back. No other alleviating, precipitating or modifying factors - Related Data Home Medications Medication Instructions Recorded Confirmed [place]-3 Fatty Acids/Fish Oil [Fish 1 cap PO HS 12/11/18 09/17/24 Oil 1,000 mg Softgel] Cholecalciferol [Vitamin D3 (25 50 mcg PO HS 06/11/22 09/17/24 Mcg = 1000 Iu)] Lovastatin [Mevacor] 20 mg PO HS 06/11/22 09/17/24 Ascorbic Acid [Vitamin C] 1,000 mg PO HS 09/17/24 09/17/24 Multivit-Min/FA/Lycopen/Lutein 1 tab PO HS 09/17/24 09/17/24 [Centrum Silver Tablet] Tamsulosin [Flomax] 0.4 mg PO 09/17/24 09/17/24 Allergies Allergy/AdvReac Type Severity Reaction Status Date / Time No Known Allergies Allergy Verified 09/17/24 16:45 Review of Systems ROS Statement: Those systems with pertinent positive or pertinent negative responses have been documented in the HPI. ROS Other: All systems not noted in ROS Statement are negative. Past Medical History Past Medical History: Hyperlipidemia, Hypertension Additional Past Medical History / Comment(s): bladder retention, tinnitus, colon polyps. History of Any Multi-Drug Resistant Organisms: None Reported Past Surgical History: Hernia Repair Additional Past Surgical History / Comment(s): Colonoscopy last year with angelina ypectomy. 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 sent in by a medical professional or institution (, PA, PROCUREMENT MANAGER, urgent care, hospital, or detention...) When possible be specific @ -[No] Did you speak to anyone other than the patient for history (EMS, parent, family, police, friend...)? What history was obtained from this source @ -[No] Did you review nursing and triage notes (agree or disagree)? Why? @ -[I reviewed and agree with nursing and triage notes] Were old charts reviewed (outside hosp., previous admission, EMS record, old EKG, old radiological studies, urgent care reports/EKG's, detention records)? Report findings @ -[No old charts were reviewed] Differential Diagnosis (chest pain, altered mental status, abdominal pain women, abdominal pain men, vaginal bleeding, weakness, fever, dyspnea, syncope, headache, dizziness, GI bleed, back pain, seizure, CVA, palpatations, mental health, musculoskeletal)? @ -[not applicable] EKG interpreted by me (3pts min.). @ -Yes and demonstrates sinus bradycardia with a rate of 58. MO interval 184. QRS 99. QTc of 401. No acute ST segment elevations. Inverted T wave lead III X-rays interpreted by me (1pt min.). @ -[None done] CT interpreted by me (1pt min.). @ -[None done] U/S interpreted by me (1pt. min.). @ -[None done] What testing was considered but not performed or refused? (CT, X-rays, U/S, labs)? Why? @ -[None] What meds were considered but not given or refused? Why? @ -[None] Did you discuss the management of the patient with other professionals ( professionals i.e. Dr., PA, PROCUREMENT MANAGER, lab, RT, psych nurse, social professionals, tender coordinator, teacher, digital marketing officer, bottle caser)? Give summary @ -[No] Was smoking cessation discussed for >3mins.? @ -[No] Was critical care preformed (if so, how long)? @ -[No] Were there social determinants of health that impacted care today? How? (Homelessness, low income, unemployed, alcoholism, drug addiction, transportati on, low edu. Level, literacy, decrease access to med. care, snf, rehab)? @ -[No] Was there de-escalation of care discussed even if they declined (Discuss DNR or withdrawal of care, Hospice)? DNR status @ -[No] What co-morbidities impacted this encounter? (DM, HTN, Smoking, COPD, CAD, Cancer, CVA, ARF, Chemo, Hep., AIDS, mental health diagnosis, sleep apnea, morbid obesity)? @ -[None] Was patient admitted / discharged? Hospital course, mention meds given and route, prescriptions, significant lab abnormalities, going to OR and other pertinent info. @ -[hospital course] Undiagnosed new problem with uncertain prognosis? @ -[No] Drug Therapy requiring intensive monitoring for toxicity (Heparin, Nitro, Insulin, Cardizem)? @ -[No] Were any procedures done? @ -[No] Diagnosis/symptom? @ -[default] Acute, or Chronic, or Acute on Chronic? @ -[default] Uncomplicated (without systemic symptoms) or Complicated (systemic symptoms)? @ -[default] Side effects of treatment? @ -[No] Exacerbation, Progression, or Severe Exacerbation? @ -[No] Poses a threat to life or bodily function? How? (Chest pain, [place], [place], pneumonia, PE, COPD, DKA, ARF, appy, cholecystitis, CVA, Diverticulitis, Homicidal, Suicidal, threat to staff... and all critical care pts) @ -[No] Disposition Clinical Impression: Chest pain Disposition: ADMITTED IP TO THIS HOSP Condition: Stable Is patient prescribed a controlled substance at d/c from ED?: No Referrals: Tad Forrest [Primary Care Provider] - 1-2 days Time of Disposition: 19:06 Decision to Admit Reason: Admit from EC Decision Date: 09/17/24 Decision Time: 19:06
[2024-09-17] MEDS ORDERED: NALOXONE 0.4 MG/ML 1 ML VIAL IV PRN (19:06)
[2024-09-17] MEDS: ASPIRIN 81 MG PO STA (19:29)
[2024-09-18 07:22] VITALS: BP 122/72; PULSE 52; RESP 15; TEMP 97.8
[2024-09-18 10:21] LABS: Basophils # (A) 0.03 X 10*3/uL (0.00-0.10); Basophils % (A) 0.6 %; Eosinophils # (A) 0.14 X 10*3/uL (0.04-0.35); HCT 41.1 % (39.6-50.0); HGB 13.1 g/dL (13.0-17.0); Lymphocytes % (A) 27.5 %; MCH 31.1 pg (27.0-32.0); MCHC 31.9 g/dL (32.0-37.0); MCV 97.6 FL (80.0-97.0); Mean Platelet Volume 10.8 FL (9.5-12.2); Monocytes # (A) 0.36 X 10*3/uL (0.20-1.00); Monocytes % (A) 7.6 %; NRBC Per 100 WBC 0 X 10*3/uL (0.00-0.01); Neutrophils # (A) 2.88 X 10*3/uL (1.80-7.70); Neutrophils % (A) 61.1 %; Platelet Count 255 X 10*3/uL (140-440); RBC 4.21 X 10*6/uL (4.40-5.60); RDW 12.9 % (11.5-14.5); WBC 4.72 X 10*3/uL (4.50-10.00)
[2024-09-18 10:35] LABS: BUN/Creat Ratio 20.88 Ratio (12.00-20.00); Blood Urea Nitrogen 16.7 mg/dL (9.0-27.0); Calcium 9.4 mg/dL (8.7-10.3); Carbon Dioxide 24.8 mmol/L (21.6-31.8); Chloride 106 mmol/L (96-109); Glucose 84 mg/dL (70-110); Potassium 4.5 mmol/L (3.5-5.5); Sodium 141 mmol/L (135-145)
--- NOTE | 2024-09-18 11:11 | CA ---
Transthoracic Echo Report Name: Sandor Davila Age: 58 Gender: M : 1965 Exam Date: 09/18/2024 08:12 Exam Location: [place] [facility] Ht (in): 71 Wt (lb): 172 Ordering Physician: Rose Parmar DO Attending/Referring Phys: [id number], [employer] Technician Johanna Morel, [facility] Procedure CPT: Indications: Chest Pain Cardiac Hx: Technical Quality: Good Contrast 1: Total Dose (mL): Contrast 2: Total Dose (mL): MEASUREMENTS (Male / Female) Normal Values 2D ECHO LV Diastolic Diameter PLAX 5.0 cm 4.2 - 5.9 / 3.9 - 5.3 cm LV Systolic Diameter PLAX 3.1 cm IVS Diastolic Thickness 1.0 cm 0.6 - 1.0 / 0.6 - 0.9 cm LVPW Diastolic Thickness 1.0 cm 0.6 - 1.0 / 0.6 - 0.9 cm LV Relative Wall Thickness 0.4 RV Internal Dim ED PLAX 2.5 cm LA Systolic Diameter LX 3.7 cm 3.0 - 4.0 / 2.7 - 3.8 cm LV Diastolic Volume MOD BP 107.3 cm??? 67 - 155 / 56 - 104 cm??? LV Systolic Volume MOD BP 42.2 cm??? 22 - 58 / 19 - 49 cm??? LV Ejection Fraction MOD BP 60.7 % >= 55 % LV Cardiac Index MOD BP 1740.6 cm???/min???m??? LV Diastolic Volume MOD 4C 99.4 cm??? LV Systolic Volume MOD 4C 44.6 cm??? LV Ejection Fraction MOD 4C 55.1 % LV Cardiac Index MOD 4C 1466.3 cm???/min???m??? LV Diastolic Length 4C 8.2 cm LV Systolic Length 4C 6.9 cm LV Diastolic Volume MOD 2C 115.2 cm??? LV Systolic Volume MOD 2C 39.5 cm??? LV Ejection Fraction MOD 2C 65.7 % LV Cardiac Index MOD 2C 2025.0 cm???/min???m??? LV Diastolic Length 2C 8.2 cm LV Systolic Length 2C 7.0 cm LA Volume 55.0 cm??? 18 - 58 / 22 - 52 cm??? LA Volume Index 27.8 cm???/m??? 16 - 28 cm???/m??? M-MODE Aortic Root Diameter MM 4.1 cm LA Systolic Diameter MM 4.0 cm LA Ao Ratio MM 1.0 AV Cusp Separation MM 1.8 cm DOPPLER AV Peak Velocity 134.6 cm/s AV Peak Gradient 7.3 mmHg MV Area PHT 3.4 cm??? Mitral E Point Velocity 108.4 cm/s Mitral A Point Velocity 69.1 cm/s Mitral E to A Ratio 1.6 MV Deceleration Time 220.3 ms TR Peak Velocity 227.6 cm/s TR Peak Gradient 20.7 mmHg FINDINGS Left Ventricle Left ventricular ejection fraction is estimated at 55-60%. Normal left ventricular systolic function with no obvious regional wall motion abnormalities. Left ventricular cavity size normal. Mildly increased left ventricular wall thickness. Right Ventricle Normal right ventricular size and function. Right ventricular systolic pressure within normal limits. Right Atrium Mild right atrial dilatation. Left Atrium Mild left atrial dilatation. Mitral Valve Structurally normal mitral valve. Trace to mild mitral regurgitation. No mitral stenosis. Aortic Valve No aortic valve stenosis or regurgitation. Trileaflet aortic valve. Tricuspid Valve Structurally normal tricuspid valve. Mild tricuspid regurgitation. No tricuspid stenosis. Pulmonic Valve Structurally normal pulmonic valve. No pulmonic stenosis. Trace pulmonic regurgitation. Pericardium No pericardial or pleural effusion. Aorta Mild aortic dilatation at the level of the sinuses of valsalva (root). CONCLUSIONS Left ventricular ejection fraction 55 to 60% Trace to mild mitral regurgitation No pericardial effusion Previewed by: Dr. Tyron Peters DO (Electronically Signed) Final Date: 18 Sep 2024 11:11
--- NOTE | 2024-09-18 13:39 | CA ---
Stress Echo Report Sandor Davila Age: 58 Gender: M : 1965 Exam Date: 09/18/2024 12:19 Exam Location: [place] [facility] Ht (in): 71 Wt (lb): 172 Ordering Physician: Daylin Vaughn Referring Physician: [id number] Route Cdl Driver: Kaitlin Otoole RDCS Technologist Procedure CPT: Indication: Chest Pain ICD-9 Codes: Rhythm: Patient History: CHEST PAIN, HTN, HYPERCHOLESTEROLEMIA, PRIOR HEART CATH, PRIOR SMOKER Cardiac Medications: Medications in past 24 hours: Contrast: Stress Results Protocol: Sander Total dose(mL): Exercise Duration (min:sec): 10:[address] Depression (mm): Angina Score: Ceballos Score: METS: 11.7 Resting HR: 81 Resting BP: 136 / 72 Peak HR: 151 Peak BP: 186 / 71 Max Predicted HR: 161 94 % Max Predicted HR Target HR: 137 Double Product: 00616 Stress Summary: BP Response: Reason for Termination: MAX EXERTION/TARGET HR Cardiac Symptoms: NO SYMPTOMS ECG Analysis Resting ECG: Stress ECG: Arrhythmia: Echo Analysis Resting Echo: Peak Echo Analysis: MEASUREMENTS (Male/Female) Normal Values CONCLUSIONS Patient underwent exercise stress echo with a Sander protocol treadmill stress test. Patient exercised into Stage 3 for a total of 10 minutes and 11 seconds reaching a total of 11.7 METS. Patient's maximum heart rate was 151 which represented 93% age-predicted maximum heart rate. Stress EKG portion: At baseline patient's EKG showed normal sinus rhythm, normal axis, no significant ST or T wave abnormalities. At peak exercise, EKG showed no change from baseline. Stress echo portion: 2-D echocardiogram was performed in the parasternal long, personal short, apical 2 and apical four-chamber views at rest, peak exercise and in recovery. At baseline, echocardiogram showed left ventricular ejection fraction 55% without wall motion abnormalities. With peak exercise, echocardiogram shows improvement in left ventricular ejection fraction, increase contractility, decrease in left ventricular end systolic dimension without wall motion abnormalities consistent with a normal response to exercise. Conclusions: 1. Normal EKG and echo response to exercise without evidence of inducible ischemia. 2. Good exercise capacity. Dr. Tyron Peters DO (Electronically Signed) Final Date: 18 Sep 2024 13:38
--- NOTE | 2024-09-18 13:44 | P.CRDCN ---
History of Present Illness Consult date: 09/18/24 Consult reason: chest pain History of present illness: This is a 58-year-old male patient of Dr. Turner with past medical history of hypertension, dyslipidemia, tobacco use and dependence. We have been asked to evaluate the patient for chest pain. Patient states that he has had generalized tightness in the left side of his chest and going around the back to his shoulder blade. The discomfort can last anywhere from a few minutes to a couple hours. He states it usually goes away at nighttime when he sleeping. He sometimes has it at rest. It does not necessarily occur with exertion. He denies nausea, no shortness of breath, no sweats, no lightheadedness or dizziness. He states he feels a little bit cloudy in the head. Nothing seems to make it better or worse. He does have nitroglycerin at home but did not try it. Symptoms started about 10 days ago. Regarding smoking, patient quit smoking 8 to 10 years ago. He states he normally follows a low-fat diet and has lost weight over the past 2 years. He denies alcohol use. He states he walks on a treadmill 4 times per week and also does weights in the gym. Blood pressure 122/72, heart rate 52, pulse ox 99% on room air. -EKG: Sinus bradycardia at 58 bpm -Chest x-ray: No acute process. -Laboratory studies: WBC 5.7, hemoglobin 13.1, BUN 22 creatinine 0.78. Troponin negative x 3. proBNP less than 20. -Home cardiac medications: Lovastatin 20 mg at bedtime, omega-3. -Cardiac catheterization performed on 06/13/[address] Turner revealed normal coronary angiogram. -Echocardiogram performed 06/12/2022 revealed normal LV systolic function. Mild mitral regurgitation. -Stress Cardiolite performed 06/12/2022 revealed cannot exclude acute stress- induced ischemia particularly anterior and lateral left ventricular choudhary. Cardiac catheterization was recommended at that time. Review Of Systems: At the time of my exam: CONSTITUTIONAL: Denies fever or chills. HEENT: Denies blurred vision, vision changes, or eye pain. Denies hemoptysis CARDIOVASCULAR: Denies chest pain. Denies orthopnea. Denies PND. Denies palpitations RESPIRATORY: Denies shortness of breath. GASTROINTESTINAL: Denies abdominal pain. Denies nausea or vomiting. HEMATOLOGIC: Denies bleeding disorders. GENITOURINARY: Denies any blood in urine. SKIN: Denies puritis. Denies rash. Physical examination: Gen: This is a 58-year-old male in no acute distress VS: reviewed HEENT: Head is atraumatic, normocephalic. Pupils equal, round. Sclerae is anicteric. NECK: Supple. No JVD. LUNGS: Clear to auscultation. No wheezes or rhonchi. No intercostal retractions. HEART: Regular rate and rhythm. No murmur. ABDOMEN: Soft No tenderness. EXTREMITIES: No pedal edema. No calf tenderness. NEUROLOGICAL: Patient is awake, alert and oriented x3. Assessment: Atypical chest pain, acute coronary syndrome ruled out Hypertension Dyslipidemia Plan: Resume patient's home cardiac medications Stress echocardiogram reveals normal EKG and echo response to exercise without evidence of ischemia. Good exercise capacity. Echocardiogram reveals EF of 55 to 60%, trace to mild mitral regurgitation, no pericardial effusion. Patient is cleared for discharge from cardiology and may follow-up with Dr. Turner in 2 weeks. Thank you kindly for this consultation. Nurse practitioner note has been reviewed, I agree with documented findings and plan of care. Patient was seen and examined. Past Medical History Past Medical History: Hyperlipidemia, Hypertension Additional Past Medical History / Comment(s): bladder retention, tinnitus, colon polyps. History of Any Multi-Drug Resistant Organisms: None Reported Past Surgical History: Hernia Repair Additional Past Surgical History / Comment(s): Colonoscopy last year with polypectomy. Past Anesthesia/Blood Transfusion Reactions: No Reported Reaction Past Psychological History: No Psychological Hx Reported Smoking Status: Former smoker Past Alcohol Use History: None Reported Past Drug Use History: None Reported - Past Family History Mother Family Medical History: Cancer, COPD Father Family Medical History: Cancer Sister(s) Family Medical History: No Reported History Medications and Allergies Home Medications Medication Instructions Recorded Confirmed Type [place]-3 Fatty Acids/Fish Oil [Fish 1 cap PO HS 12/11/18 09/17/24 History Oil 1,000 mg Softgel] Cholecalciferol [Vitamin D3 (25 50 mcg PO HS 06/11/22 09/17/24 History Mcg = 1000 Iu)] Lovastatin [Mevacor] 20 mg PO HS 06/11/22 09/17/24 History Ascorbic Acid [Vitamin C] 1,000 mg PO HS 09/17/24 09/17/24 History Multivit-Min/FA/Lycopen/Lutein 1 tab PO HS 09/17/24 09/17/24 History [Centrum Silver Tablet] Tamsulosin [Flomax] 0.4 mg PO HS 09/17/24 09/17/24 History Allergies Allergy/AdvReac Type Severity Reaction Status Date / Time No Known Allergies Allergy Verified 09/17/24 16:45 Physical Exam Vitals: Vital Signs Temp Pulse Pulse Pulse Resp BP BP 09/18/24 07:00 97.8 F 52 L 15 122/72 09/18/24 00:45 97.9 F 64 18 114/73 09/17/24 21:54 97.7 F 51 L 18 136/78 09/17/24 21:40 98.3 F 64 15 112/72 09/17/24 21:00 98.4 F 61 16 118/73 09/17/24 18:35 56 L 18 118/75 09/17/24 16:29 65 09/17/24 16:20 97.6 F 69 16 136/68 Pulse Ox 09/18/24 07:00 99 09/18/24 00:45 99 09/17/24 21:54 100 09/17/24 21:40 98 09/17/24 21:00 98 09/17/24 18:35 98 09/17/24 16:29 09/17/24 16:20 98 Intake and Output 09/17/24 09/18/24 09/18/24 22:59 06:59 14:59 Other: # Voids 1 Weight 78.018 kg Results 09/18/24 06:31 09/18/24 06:31 Cardiac Enzymes 09/17/24 09/17/24 09/17/24 Range/Units 16:45 16:45 19:46 AST 24 (17-59) U/L Troponin I <0.012 <0.012 (0.000-0.034) ng/mL 09/17/24 Range/Units 23:25 AST (17-59) U/L Troponin I <0.012 (0.000-0.034) ng/mL Coagulation 09/17/24 Range/Units 16:45 PT 11.5 (10.0-12.5) sec APTT 24.7 (22.0-30.0) sec CBC 09/17/24 Range/Units 16:45 WBC 5.79 (4.50-10.00) 10*3/uL RBC 4.16 L (4.40-5.60) 10*6/uL Hgb 13.1 (13.0-17.0) g/dL Hct 39.2 L (39.6-50.0) % Plt Count 274 (140-440) 10*3/uL Comprehensive Metabolic Panel 09/17/24 Range/Units 16:45 Sodium 138 (137-145) mmol/L Potassium 4.5 (3.5-5.1) mmol/L Chloride 102 (98-107) mmol/L Carbon Dioxide 25 (22-30) mmol/L BUN 22 H (9-20) mg/dL Creatinine 0.78 (0.66-1.25) mg/dL Glucose 90 (74-99) mg/dL Calcium 10.2 (8.4-10.2) mg/dL AST 24 (17-59) U/L ALT 21 (4-49) U/L Alkaline Phosphatase 48 (38-126) U/L Total Protein 7.5 (6.3-8.2) g/dL Albumin 4.7 (3.5-5.0) g/dL Current Medications Generic Name Dose Route Start Last Admin Trade Name Freq PRN Reason Stop Dose Admin Ascorbic Acid 1,000 mg 09/18/24 21:00 Ascorbic Acid 500 Mg Tab PO HS PARRIS Atorvastatin Calcium 10 mg 09/18/24 21:00 Atorvastatin 10 Mg Tab PO HS PARRIS Cholecalciferol 50 mcg 09/18/24 21:00 Cholecalciferol 25 Mcg (1000 Iu) Tablet PO HS PARRIS Multivitamins 1 each 09/18/24 21:00 Multivitamins, Thera 1 Each Tab PO HS PARRIS Naloxone HCl 0.2 mg 09/17/24 19:06 Naloxone 0.4 Mg/Ml 1 Ml Vial IV Q2M PRN Opioid Reversal Tamsulosin HCl 0.4 mg 09/18/24 21:00 Tamsulosin 0.4 Mg Cap.Er.24h PO HS [facility] Intake and Output 09/17/24 09/18/24 09/18/24 22:59 06:59 14:59 Other: # Voids 1 Weight 78.018 kg 09/17/24 16:45 09/17/24 16:45
--- NOTE | 2024-09-18 14:08 | P.HPIM ---
History of Present Illness H&P Date: 09/18/24 This is a pleasant 58-year-old male who presented to the emergency department with chest pain and was at his doctor's office Dr. Forrest and reportedly had been having chest pain for the last 6 days that are progressively getting worse. Patient was at his PCPs office and had an EKG done and physician recommended following up with finisher screwdown and/or going to the ER for further evaluation. Chest x-ray shows no acute cardiopulmonary process, EKG shows sinus bradycardia with a heart rate of 58 bpm. Per patient, follows with Dr. Turner outpatient and has had cardiac catheterization within the last 2 years showing normal coronary arteries. 2D echo shows an EF of 55 to 60% with left ventricular systolic function with no obvious regional wall motion abnormalities. Labs reviewed revealing a normal white count of 5.79, hemoglobin is 13.1, platelets 274, sodium is 138 with a potassium of 4.5, BUN is 22 with a creatinine of 0.78, magnesium was 2.0, troponins x 3 are negative, BNP is less than 20. Vital signs have been stable. Patient has history of hyperlipidemia, hypertension, chronic tinnitus, former smoker. Patient was admitted under observation for cardiology evaluation. REVIEW OF SYSTEMS: CONSTITUTIONAL: No fever, no malaise, no fatigue. HEENT: No recent visual problems or hearing problems. Denied any sore throat. CARDIOVASCULAR: Reports of intermittent that has been ongoing for the last 6 days chest pain, orthopnea, PND, no palpitations, no syncope. PULMONARY: No shortness of breath, no cough, no hemoptysis. GASTROINTESTINAL: No diarrhea, no nausea, no vomiting, no abdominal pain. NEUROLOGICAL: No headaches, no weakness, no numbness. HEMATOLOGICAL: Denies any bleeding or petechiae. GENITOURINARY: Denies any burning micturition, frequency, or urgency. MUSCULOSKELETAL/RHEUMATOLOGICAL: Denies any joint pain, swelling, or any muscle pain. ENDOCRINE: Denies any polyuria or polydipsia. The rest of the 14-point review of systems is negative. PHYSICAL EXAMINATION: GENERAL: The patient is alert and oriented x3, not in any acute distress. Well developed, well nourished. HEENT: Pupils are round and equally reacting to light. EOMI. No scleral icterus. No conjunctival pallor. Normocephalic, atraumatic. No pharyngeal erythema. No thyromegaly. CARDIOVASCULAR: S1 and S2 present. No murmurs, rubs, or gallops. PULMONARY: Chest is clear to auscultation, no wheezing or crackles. ABDOMEN: Soft, nontender, nondistended, normoactive bowel sounds. No palpable organomegaly. MUSCULOSKELETAL: No joint swelling or deformity. EXTREMITIES: No cyanosis, clubbing, or pedal edema. NEUROLOGICAL: Gross neurological examination did not reveal any focal deficits. SKIN: No rashes. Assessment: Chest pain, ruled out ACS, status post stress test which was negative History of hypertension History of hyperlipidemia Former smoker History of chronic tinnitus GI prophylaxis DVT prophylaxis Full code Plan: Patient is maintained on telemetry monitoring and has troponins x 3 negative awaiting cardiology evaluation. Patient did undergo 2D echo showing a normal EF of 55 to 60% Patient follows with Dr. Turner in the outpatient setting and has had previous Cardiac catheterization 2 years ago revealing normal coronary arteries Will await cardiology evaluation for possible discharge planning later today. The impression and plan of care has been dictated by Cynthia Colindres, Nurse Practitioner as directed. Dr. Jayesh MD I have performed a history and examination and MDM of this patient, discussed the same with the dictator, and agree with the dictator's assessment and plan as written ,documented as a scribe. Based on total visit time, I have performed more than 50% of the visit. Past Medical History Past Medical History: Hyperlipidemia, Hypertension Additional Past Medical History / Comment(s): bladder retention, tinnitus, colon polyps. History of Any Multi-Drug Resistant Organisms: None Reported Past Surgical History: Hernia Repair Additional Past Surgical History / Comment(s): Colonoscopy last year with polypectomy. Past Anesthesia/Blood Transfusion Reactions: No Reported Reaction Past Psychological History: No Psychological Hx Reported Smoking Status: Former smoker Past Alcohol Use History: None Reported Past Drug Use History: None Reported - Past Family History Mother Family Medical History: Cancer, COPD Father Family Medical History: Cancer Sister(s) Family Medical History: No Reported History Medications and Allergies Home Medications Medication Instructions Recorded Confirmed Type [place]-3 Fatty Acids/Fish Oil [Fish 1 cap PO HS 12/11/18 09/17/24 History Oil 1,000 mg Softgel] Cholecalciferol [Vitamin D3 (25 50 mcg PO HS 06/11/22 09/17/24 History Mcg = 1000 Iu)] Lovastatin [Mevacor] 20 mg PO HS 06/11/22 09/17/24 History Ascorbic Acid [Vitamin C] 1,000 mg PO HS 09/17/24 09/17/24 History Multivit-Min/FA/Lycopen/Lutein 1 tab PO HS 09/17/24 09/17/24 History [Centrum Silver Tablet] Tamsulosin [Flomax] 0.4 mg PO HS 09/17/24 09/17/24 History Allergies Allergy/AdvReac Type Severity Reaction Status Date / Time No Known Allergies Allergy Verified 09/17/24 16:45 Physical Exam Vitals: Vital Signs Temp Pulse Pulse Pulse Resp BP BP 09/18/24 07:00 97.8 F 52 L 15 122/72 09/18/24 00:45 97.9 F 64 18 114/73 09/17/24 21:54 97.7 F 51 L 18 136/78 09/17/24 21:40 98.3 F 64 15 112/72 09/17/24 21:00 98.4 F 61 16 118/73 09/17/24 18:35 56 L 18 118/75 09/17/24 16:29 65 09/17/24 16:20 97.6 F 69 16 136/68 Pulse Ox 09/18/24 07:00 99 09/18/24 00:45 99 09/17/24 21:54 100 09/17/24 21:40 98 09/17/24 21:00 98 09/17/24 18:35 98 09/17/24 16:29 09/17/24 16:20 98 Intake and Output 09/17/24 09/18/24 09/18/24 22:59 06:59 14:59 Other: # Voids 1 Weight 78.018 kg Results CBC & Chem 7: 09/18/24 06:31 09/18/24 06:31 Labs: Abnormal Lab Results - Last 24 Hours (Table) 09/17/24 09/17/24 Range/Units 16:45 16:45 RBC 4.16 L (4.40-5.60) 10*6/uL Hct 39.2 L (39.6-50.0) % BUN 22 H (9-20) mg/dL Thrombosis Risk Factor Assmnt - Choose All That Apply Any of the Below Risk Factors Present?: Yes Each Factor Represents 1 point: Age 41-60 years Other Risk Factors: No Other congenital or acquired thrombophilia - If yes, enter type in comment: No Thrombosis Risk Factor Assessment Total Risk Factor Score: 1 Thrombosis Risk Factor Assessment Level: Low Risk
--- NOTE | 2024-09-18 14:15 | P.DS ---
Providers Date of admission: 09/17/24 19:07 Expected date of discharge: 09/18/24 Attending physician: Jazlyn Bernard Consults: 09/17/24 19:06 Consult Physician Urgent Consulting Provider: [facility] Consult Reason/Comments: acute chest pain, possible acs Do you want consulting provider notified?: Yes Primary care physician: Tad Forrest Hospital Course: Final diagnosis Chest pain, ruled out ACS, status post stress test which was negative History of hypertension History of hyperlipidemia Former smoker History of chronic tinnitus GI prophylaxis DVT prophylaxis Full code Discharge disposition Patient is being discharged in a stable condition with guarded prognosis to home. Patient will follow-up with Dr. Forrest in the outpatient setting upon discharge. Patient is to continue with current medications and outpatient follow-up with cardiology as scheduled. Total time taken is greater than 35 minutes. Hospital course This is a 58-year-old male who was recently admitted with chest pain that had been ongoing for the last 6 days. Patient was at Dr. Forrest's office and had an EKG and was told to follow-up with cardiology outpatient and/or go to the ER for further evaluation. Patient continued to have persistent chest pain that was pressure-like sensation that was radiating down the left arm and was concerned so he came here for further evaluation. Patient was evaluated by cardiology underwent 2D echo which was normal and after further evaluation they proceeded with stress test which was negative for any reversible ischemia. Patient has been cleared by cardiology and will be discharged today. Patient has been instructed to follow-up with his primary county nurse Dr. Turner in the outpatient setting. Currently no reports of chest pain, shortness of breath, or palpitations. Patient is afebrile. No reports of nausea or vomiting and patient is tolerating diet. Patient will be discharged home today Physical exam: GENERAL: The patient is alert and oriented x3, not in any acute distress. Well developed, well nourished. HEENT: Pupils are round and equally reacting to light. EOMI. No scleral icterus. No conjunctival pallor. Normocephalic, atraumatic. No pharyngeal erythema. No thyromegaly. CARDIOVASCULAR: S1 and S2 present. No murmurs, rubs, or gallops. PULMONARY: Chest is clear to auscultation, no wheezing or crackles. ABDOMEN: Soft, nontender, nondistended, normoactive bowel sounds. No palpable organomegaly. MUSCULOSKELETAL: No joint swelling or deformity. EXTREMITIES: No cyanosis, clubbing, or pedal edema. NEUROLOGICAL: Gross neurological examination did not reveal any focal deficits. SKIN: No rashes. Please refer to medication reconciliation sheet for a list of medications. The impression and plan of care has been dictated by Cynthia Colindres, Nurse Practitioner as directed. Dr. Jayesh MD I have performed a history and examination and MDM of this patient, discussed the same with the dictator, and agree with the dictator's assessment and plan as written ,documented as a scribe. Based on total visit time, I have performed more than 50% of the visit. Patient Condition at Discharge: Stable Plan - Discharge Summary Discharge Rx Participant: No New Discharge Prescriptions: Continue [place]-3 Fatty Acids/Fish Oil [Fish Oil 1,000 mg Softgel] 1 cap PO HS Cholecalciferol [Vitamin D3 (25 Mcg = 1000 Iu)] 50 mcg PO HS Lovastatin [Mevacor] 20 mg PO HS Multivit-Min/FA/Lycopen/Lutein [Centrum Silver Tablet] 1 tab PO HS Tamsulosin [Flomax] 0.4 mg PO HS Ascorbic Acid [Vitamin C] 1,000 mg PO HS Discharge Medication List [place]-3 Fatty Acids/Fish Oil [Fish Oil 1,000 mg Softgel] 1 cap PO HS 12/11/18 [History] Cholecalciferol [Vitamin D3 (25 Mcg = 1000 Iu)] 50 mcg PO HS 06/11/22 [History] Lovastatin [Mevacor] 20 mg PO HS 06/11/22 [History] Ascorbic Acid [Vitamin C] 1,000 mg PO HS 09/17/24 [History] Multivit-Min/FA/Lycopen/Lutein [Centrum Silver Tablet] 1 tab PO HS 09/17/24 [History] Tamsulosin [Flomax] 0.4 mg PO HS 09/17/24 [History] Follow up Appointment(s)/Referral(s): Donavon Turner MD [STAFF PHYSICIAN] - 2 Weeks Tad Forrest [Primary Care Provider] - 1-2 days Activity/Diet/Wound Care/Special Instructions: Activity limited until follow-up Follow-up with county nurse outpatient in 1 to 2 weeks Continue taking medications as prescribed Follow-up with primary care provider on discharge Discharge Disposition: HOME SELF-CARE
[2024-09-18] MEDS ORDERED: CHOLECALCIFEROL 25 MCG (1000 IU) TABLET PO SCH (21:00)
[2024-09-18] MEDS ORDERED: TAMSULOSIN 0.4 MG CAP.ER.24H PO SCH (21:00)
[2024-09-18] MEDS ORDERED: NON FORMULARY DRUG (Omega-3 Fatty Acids/Fish Oil [Fish Oil 1,000 Mg Softgel] 1 EACH Capsul PO SCH (21:00)
[2024-09-18] MEDS ORDERED: ASCORBIC ACID 500 MG TAB PO SCH (21:00)
[2024-09-18] MEDS ORDERED: ATORVASTATIN 10 MG TAB PO SCH (21:00)
[2024-09-18] MEDS ORDERED: MULTIVITAMINS, THERA 1 EACH TAB PO SCH (21:00)
== END 2024-09-18 14:25 | disposition home or self-care (01) ==
LOC: EC 16:13 → 6NMEDSUR 19:07
PROVIDERS: ADMIT Hospitalist; ATTEND Hospitalist
DX: R07.89 Other chest pain (principal); I10 Essential (primary) hypertension; E78.00 Pure hypercholesterolemia, unspecified; I25.10 Atherosclerotic heart disease of native coronary artery without angina pectoris; I34.0 Nonrheumatic mitral (valve) insufficiency; R00.1 Bradycardia, unspecified; H93.19 Tinnitus, unspecified ear; M79.602 Pain in left arm; Z79.899 Other long term (current) drug therapy; Z87.891 Personal history of nicotine dependence
CPT/HCPCS: 99285; 36415; 93005; 93306; 93351; 83880; 80053; 80048; 83735; 84484; 85025 ×2; 85610; 85730; 71046; G0378 ×2